=== PATIENT | male | born 1975 | race American Indian/Alaskan Native ===

== ENCOUNTER → 2024-09-25 | Outpatient (CLI) | payer OTHER, BC, SELFPAY ==
--- NOTE | 2024-09-25 10:00 | XR_ITS ---
Examination: JEOVANY, hepatobiliary radioisotope scan Gallbladder ejection fraction study. Date and time of exam: September 25, 2024 1022 hours INDICATIONS: Right upper abdominal pain vomiting bloating epigastric pain months Technique: 6 mCi of 99M Hepatolite administered. Serial imaging then obtained from immediate through 60 minutes. 1.6 mcg selective catheter Kinevac administered for gallbladder ejection fraction study. Findings: Radioisotope activity within the liver is reasonably homogenous. Gallbladder, common bile duct small bowel activity noted Impression: Gallbladder activity Abnormal gallbladder ejection fraction, 12%, normal greater than 35%
== END | disposition home or self-care (01) ==
LOC: SNUC 09:24
PROVIDERS: PCP Nurse Practitioner Family; Referring Provider Nurse Practitioner Family; Visit Provider Nurse Practitioner Family
DX: R93.89 Abnormal findings on diagnostic imaging of other specified body structures (principal)
CPT/HCPCS: 78226; A9537; J2805

== ENCOUNTER 2024-12-20 07:18 | Emergency (ER) | payer OTHER, BC, SELFPAY ==
--- NOTE | 2024-12-20 07:46 | XR_ITS ---
Examination: CT brain head without contrast. 2-D sagittal coronal reconstructions Date and time of exam:December 20, 2024 0913 hrs. Indications: Onset dizziness syncopal episodes today CTDI: vol (mGy):53.4 DLP: (mGycm):1187 Technique: Multiple CT axial sections of the brain have been obtained, 5 mm slice thickness. Contrast has not been administered. 2-D sagittal, coronal reconstructions have been obtained Low dose protocols were performed. One or more of the following dose reduction techniques were used; automated exposure control, adjustment of the mA and/or KV according to patient size, use of iterative reconstruction technique. Findings: No significant ventricular enlargement. Intra-axial or extra-axial hemorrhage density is not seen. No mass effect or midline shift Basal cisterns are not remarkable. Fourth ventricle is midline. Cranial vault intact. Impression: Negative for acute hemorrhage, mass effect or midline shift Advise clinical correlation follow-up accordingly
--- NOTE | 2024-12-20 07:46 | EKG_ITS ---
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
[2024-12-20 07:47] VITALS: BP 152/99; PULSE 91; RESP 20; TEMP 36.8; O2SAT 99; BMI 26.4
--- NOTE | 2024-12-20 07:49 | PD.EDRME ---
Rapid Medical Screening Exam RME Arrival date/time: 12/20/24 07:18 49-year-old male with a history of hypertension, type 2 diabetes presents to the emergency room with a chief complaint of nausea, vomiting, dizziness x 3 days I have greeted and performed a focused initial assessment of this patient. A comprehensive ED assessment and evaluation of the patient, analysis of all test results, and completion of the medical decision making process will be conducted by additional ED providers. Chief Complaint: Nausea/Vomiting/Diarrhea Time Seen by Provider: 12/20/24 07:21 Vital signs: Vital Signs Temperature 98.2 F 12/20/24 07:47 Pulse Rate 91 12/20/24 07:47 Respiratory Rate 20 12/20/24 07:47 Blood Pressure 152/99 H 12/20/24 07:47 Pulse Oximetry (%) 99 12/20/24 07:47 Oxygen Delivery Method Room Air 12/20/24 07:47 Vital signs reviewed by provider: Yes
[2024-12-20] MEDS: MECLIZINE HCL 25 MG TABLET 50 MG PO (07:53)
[2024-12-20] MEDS: ONDANSETRON ODT 4 MG TABRAP PO ×2 (07:54→13:01)
[2024-12-20 08:21] LABS: Basophils % (Auto) 1 % (0-2.5); Eosinophils % (Auto) 0 % (0-10); Hematocrit 45.1 % (41.0-53.0); Hemoglobin 15.8 g/dL (13.5-16.0); Immature Granulocytes % (Auto) 0 % (0-0); Immature Granulocytes Auto 0.02 Thou/mm3 (0.00-0.00); Lymphocytes # (Auto) 1.3 Thou/mm3 (1.0-4.8); Lymphocytes % (Auto) 16 % (10-50); Mean Corpuscular Hemoglobin 29.8 pg (25.0-35.0); Mean Corpuscular Volume 85 fL (80-100); Monocytes # (Auto) 0.3 Thou/mm3 (0.0-0.8); Monocytes % (Auto) 4 % (0-12); Neutrophils # (Auto) 6.6 Thou/mm3 (1.8-7.7); Neutrophils % (Auto) 80 % (37-80); Nucleated Red Blood Cell % 0 /100 WBC (0); Platelet Count 279 Thou/mm3 (140-440); RDW Standard Deviation 37.3 fL (35.1-43.9); Red Blood Count 5.31 Miln/mm3 (4.50-5.90); White Blood Count 8.3 Thou/mm3 (3.8-10.6)
[2024-12-20 08:38] LABS: Alanine Aminotransferase 19 U/L (10-49); Albumin, Serum 4.4 gm/dL (3.5-5.0); Albumin/Globulin Ratio 1.6 (1.2-2.2); Alkaline Phosphatase 67 U/L (46-116); Anion Gap 9 (7-16); Aspartate Amino Transferase 18 U/L (0-34); BUN/Creatinine Ratio 14 Ratio (12-20); Bilirubin,Total 0.4 mg/dL (0.3-1.2); Blood Urea Nitrogen 15 mg/dL (9-23); Calcium 9.4 mg/dL (8.3-10.6); Calcium (Corrected) 9.4 mg/dL (8.5-10.1); Carbon Dioxide 28.4 mMol/L (20.0-31.0); Chloride 100 mMol/L (98-107); Creatinine (Component) 1.1 mg/dL (0.6-1.3); Estimated Creatinine Clearance 88.4 mL/min (>60); Globulin 2.7 gm/dL (2.3-3.5); Glucose 244 mg/dL (74-106); Osmolality,Calculated 282 (275-295); Potassium 3.7 mMol/L (3.4-5.1); Sodium 137 mMol/L (136-145); Total Protein 7.1 gm/dL (5.7-8.2); Troponin I < 0.020 ng/mL (0.0-0.045); eGFR > 60 See Note
[2024-12-20 09:01] LABS: Collection Type, Urine Clean Catch
[2024-12-20 09:31] LABS: Bilirubin,Urine Negative (Negative); Blood,Urine Negative (Negative); Clarity,Urine Clear (Clear/Hazy); Color,Urine Lt-Yellow (Lt Yel-Yel); Glucose, Urine 4+ (Negative); Ketones,Urine 1+ (Negative); Leukocyte Esterase,Urine Negative (Negative); Nitrite,Urine Negative (Negative); Protein,Urine Negative (Neg - Trace); RBC,Urine 2 /hpf (0-3); Specific Gravity,Urine 1.032 (1.001-1.035); Squamous Epithelial Cell,Urine 1 /hpf (0-5); Urobilinogen,Urine Negative mg/dL (0.0-1.0); WBC,Urine 1 /hpf (0-5)
[2024-12-20 10:26] VITALS: BP 155/103; PULSE 91; RESP 20; TEMP 36.8; O2SAT 97
--- NOTE | 2024-12-20 10:30 | XR_ITS ---
EXAMINATION: US gall bladder ORDERING PROVIDER: ALYSSA Johnson HISTORY: ruq pain TECHNIQUE: Multiplanar still ultrasonography of the right upper quadrant was performed using grayscale imaging, supplemented by color and spectral Doppler as needed. COMPARISON: 07/11/2024, right upper quadrant ultrasound. FINDINGS: Liver: Increased echogenicity. No focal lesion identified. Midclavicular craniocaudad length 16.7 cm. Gallbladder: Within normal limits. Biliary system: No biliary ductal dilatation. Common bile duct: N/A cm. Pancreas: Obscured by bowel gas and poor acoustic windows. Vascular: Normal hepatopetal flow in the portal vein. IVC patent. Other: No ascites or mass. IMPRESSION: 1. Diffusely increased liver echotexture, likely reflecting fatty infiltration or hepatocellular disease.
[2024-12-20 11:45] VITALS: BP 179/99; PULSE 81; RESP 17; TEMP 36.9; O2SAT 96
--- NOTE | 2024-12-20 12:18 | PD.EDNV ---
Nausea/Vomit./Diarrhea-RME/HPI General Chief complaint: Nausea/Vomiting/Diarrhea Stated complaint: SEVERE N/V & DIZZINESS X 3 DAYS Time Seen by Provider: 12/20/24 07:21 Arrival date/time: 12/20/24 07:18 This is a 49-year-old male with complaints of abdominal pain, abdominal burning, nausea, vomiting for the past 3 days. Patient has a history of diabetes and high blood pressure. RME / HPI RME / HPI Narrative: 12/20/24 07:18 49-year-old male with a history of hypertension, type 2 diabetes presents to the emergency room with a chief complaint of nausea, vomiting, dizziness x 3 days I have greeted and performed a focused initial assessment of this patient. A comprehensive ED assessment and evaluation of the patient, analysis of all test results, and completion of the medical decision making process will be conducted by additional ED providers. Related Data Home Medications ?Medication ?Instructions ?Recorded ?Confirmed insulin detemir U-100 100 unit/mL 25 unit subcut BID #0 vials 10/23/16 07/01/22 subcutaneous solution (Levemir U-100 Insulin) lisinopril 2.5 mg tablet 1 tab PO DAILY 07/01/22 07/01/22 promethazine 25 mg tablet 1 tab PO DAILY 07/01/22 07/01/22 Previous Rx's ?Medication ?Instructions ?Recorded pantoprazole 20 mg tablet,delayed 20 mg PO QDAY #20 tabs 05/04/22 release (Protonix) sucralfate 1 gram tablet (Carafate) 1 g PO BID #30 tabs 05/04/22 ciprofloxacin HCl 500 mg tablet 500 mg PO BID #14 tabs 02/12/23 (Cipro) dicyclomine 20 mg tablet 20 mg PO BID PRN pain #20 tabs 02/12/23 Allergies Allergy/AdvReac Type Severity Reaction Status Date / Time No Known Allergies Allergy Verified 12/20/24 07:21 Review of Systems Review of Systems Systems Reviewed: All systems reviewed, normal except as documented Past Medical History Past Medical History CARDIAC: Positive Cardiac Disorders and Hypertension; Negative Congestive Heart Failure RESPIRATORY: Negative Chronic Obstructive Pulmonary Disease (COPD) or Asthma GENITOURINARY: Negative Renal Disease ENDOCRINE: Positive Endocrine Disorders and Diabetes Mellitus Type 2; Negative Diabetes Mellitus Type 1 HEMATOLOGIC: Negative Sickle Cell Disease Social History SMOKING STATUS: Former smoker Travel History EBOLA RISK: No ED Exam General General appearance: Present alert and in no apparent distress Head Head exam: Present atraumatic Eye Eye exam: Present normal appearance, PERRL and EOMI ENT ENT exam: Present normal exam, normal oropharynx and mucous membranes moist Neck Neck exam: Present normal inspection, full ROM and trachea midline Chest Chest inspection: Present normal inspection and symmetric chest wall rise Respiratory Respiratory exam: Present normal lung sounds bilaterally Cardiovascular Cardiovascular exam: Present regular rate and normal rhythm Abdominal Exam Abdominal exam: Present soft and other (no pain to light palpation ) Extremities Exam Extremities exam: Present normal inspection and full ROM Back Exam Back exam: Present normal inspection and full ROM Neurological Exam Neurological exam: Present alert, oriented X3 and CN II-XII intact Psychiatric Psychiatric exam: Present normal affect and normal mood Skin Skin exam: Present warm, dry, intact and normal color Course Quality Measures none Orders Category Date Time Status Bedside COVID-19 Antigen Test NOW Care 12/20/24 10:11 Completed Bedside Influenza A&B Antigen Test NOW Care 12/20/24 10:11 Completed EKG (ED ONLY) *Do not use* NOW Care 12/20/24 07:47 Completed Insert IV NOW Care 12/20/24 12:[address] head/brain wo con Stat Exams 12/20/24 07:46 Completed EKG (ED Only) Stat Exams 12/20/24 07:46 Draft US gall bladder Stat Exams 12/20/24 10:30 Completed CBC Stat Lab 12/20/24 07:55 Completed Comprehensive Metabolic Panel Stat Lab 12/20/24 07:55 Completed Lipase Stat Lab 12/20/24 07:55 Completed Troponin I Stat Lab 12/20/24 07:55 Completed Urinalysis Stat Lab 12/20/24 08:30 Completed Urine Culture Stat Lab 12/20/24 08:30 Completed HYDROcodone*/APAP 5/325 [Witter 5/325] Med 12/20/24 15:43 Discontinued 1 tab PO X1 ONE Ketorolac Inj [Toradol Inj] Med 12/20/24 14:10 Discontinued 30 mg IVP X1 ONE Lidocaine 2% Viscous [Xylocaine 2% Viscous] Med 12/20/24 12:27 Discontinued 10 ml PO X1 ONE Meclizine HCl [Antivert] Med 12/20/24 07:46 Discontinued 50 mg PO X1 ONE Metoclopramide [Reglan] Med 12/20/24 15:43 Discontinued 10 mg PO X1 ONE Morphine Inj Med 12/20/24 12:27 Discontinued 4 mg IVP X1 ONE Ondansetron Odt [Zofran Odt] Med 12/20/24 07:46 Discontinued 4 mg PO X1 ONE Ondansetron Odt [Zofran Odt] Med 12/20/24 12:27 Discontinued 4 mg PO X1 ONE Sodium Chloride 0.9% 1000 ml [Ns] 1,000 ml Med 12/20/24 12:27 Discontinued IV 999 mls/hr mg Hyd/Al Hyd/Deepak Susp [Maalox Susp] Med 12/20/24 12:27 Discontinued 30 ml PO X1 ONE Vital Signs Vital signs: Vital Signs Temperature 98.2 F 12/20/24 07:47 Pulse Rate 91 12/20/24 07:47 Respiratory Rate 20 12/20/24 07:47 Blood Pressure 152/99 H 12/20/24 07:47 Pulse Oximetry (%) 99 12/20/24 07:47 Oxygen Delivery Method Room Air 12/20/24 07:47 Procedures -ED EKG Interpretation #1: Date of EK12/20/24 Time of EK:01 Rate: 79 Interpretation: Interpreted by me (sinus rhythm and sinus arrhythmia ) EKG Impression: Normal QRS Additional EKG comment: previously seen in previous ekgs Nausea/Vomiting/Diarrhea MDM Narrative MDM Narrative:: FINDINGS: Liver: Increased echogenicity. No focal lesion identified. Midclavicular craniocaudad length 16.7 cm. Gallbladder: Within normal limits. Biliary system: No biliary ductal dilatation. Common bile duct: N/A cm. Pancreas: Obscured by bowel gas and poor acoustic windows. Vascular: Normal hepatopetal flow in the portal vein. IVC patent. Other: No ascites or mass. IMPRESSION: 1. Diffusely increased liver echotexture, likely reflecting fatty infiltration or hepatocellular disease. Patient given a liter of IV fluids along with morphine, Zofran, Maalox, lidocaine. Patient does feel better. Patient was given another dose of pain medication but this time we used Toradol. Patient's white count shows 8.3, hemoglobin and hematocrit of 15.8 and 45.1. Patient's be MP shows an elevated glucose of 244. But otherwise unremarkable. Patient's liver function and bilirubin unremarkable. Lipase unremarkable. Patient feeling better. I spoke to patient at length about following up with primary provider and being sent back to the specialist for GI problems. Patient feels comfortable going home at this time. I told patient to come back to the emergency room if symptoms change or worsen. I also mentioned to patient that visit also shows that he has sinus arrhythmia on EKG. Pt states this is the first time he was told this. He states he will follow-up with primary provider about this. Patient's is at bedside.. Patient data External records reviewed:: [facility] previous records Clinical information provided by:: patient Social determinants that could affect healthcare access:: none Patient has the following chronic illnesses:: see hpi How is presenting disease/condition affected by chronic disease/condition?: uneffected by Evaluation data The following diagnostics were reviewed and interpreted by me:: lab results and radiology exam(s) Lab and/or radiology exams considered but not ordered:: none Interpretation Summary: see note Medications / Prescriptions Medications / Prescriptions considered but not ordered:: none Medication administrations:: Medication Administration History Discontinued Medications Hydrocodone Bitart/Acetaminophen (Hydrocodone/Apap 5/325 Tablet) 1 tab PO X1 ONE Stop: 12/20/24 15:44 Last Admin: 12/20/24 17:27 Dose: 1 tab Documented By: VANESA Al Hydrox/Mg Hydrox/Simethicone (Mg Hyd/Al Hyd/Deepak (Maalox Reg) Susp 30 Ml Udc) 30 ml PO X1 ONE Stop: 12/20/24 12:28 Last Admin: 12/20/24 13:01 Dose: 30 ml Documented By: GUY Sodium Chloride (Ns) 1,000 mls @ 999 mls/hr IV .Q1H1M ONE Stop: 12/20/24 13:27 Last Infusion: 12/20/24 14:53 Dose: Infused Documented By: Admin: 12/20/24 13:00 Dose: 999 mls/hr Documented By: GUY Ketorolac Tromethamine (Ketorolac Inj 30 Mg/Ml Vial) 30 mg IVP X1 ONE Stop: 12/20/24 14:11 Last Admin: 12/20/24 14:51 Dose: 30 mg Documented By: VANESA Lidocaine HCl (Lidocaine Viscous 2% 15 Ml Udc) 10 ml PO X1 ONE Stop: 12/20/24 12:28 Last Admin: 12/20/24 13:01 Dose: 10 ml Documented By: GUY Meclizine HCl (Meclizine Hcl 25 Mg Tablet) 50 mg PO X1 ONE Stop: 12/20/24 07:47 Last Admin: 12/20/24 07:53 Dose: 50 mg Documented By: TEZ Metoclopramide HCl (Metoclopramide Liqd 10 Mg/10 Ml Udc) 10 mg PO X1 ONE Stop: 12/20/24 15:44 Last Admin: 12/20/24 17:28 Dose: 10 mg Documented By: VANESA Morphine Sulfate (Morphine Sulf Inj 10 Mg/Ml Vial) 4 mg IVP X1 ONE Stop: 12/20/24 12:28 Last Admin: 12/20/24 12:56 Dose: 4 mg Documented By: GUY Ondansetron HCl (Ondansetron Odt 4 Mg Tabrap) 4 mg PO X1 ONE; Protocol Stop: 12/20/24 07:47 Last Admin: 12/20/24 07:54 Dose: 4 mg Documented By: TEZ Ondansetron HCl (Ondansetron Odt 4 Mg Tabrap) 4 mg PO X1 ONE; Protocol Stop: 12/20/24 12:28 Last Admin: 12/20/24 13:01 Dose: 4 mg Documented By: GUY see mar Consultations Consultation(s) initiated? (list below): No Diagnosis Nausea Differential Diagnosis: gastroenteritis, dehydration and other (abdominal pain, appendicitis, cholecystitis ) Most likely diagnosis given after review of the tests above:: abdominal pain, chronic gastritis Admission Indicated Admission indicated?: not indicated Admission Request Was there a request for admission?: No Disposition Plan Disposition Plan: Discharge Discharge Attestation Discharge Attestation: The patient and all family members were given an opportunity to ask questions and understood the discharge instructions. Discharge instructions specifically effects, indications for sooner follow up or return to the emergency department, and the expected course of current diagnosis. Patient condition: Stable Discharge Plan Plan Patient Disposition: HOME (Self Care) Patient condition on transfer: Stable Prescriptions/Referrals Prescriptions/Med Rec: No Action Levemir U-100 Insulin 100 U/ML solution 25 unit Sub-Q BID Qty: 0 pantoprazole [Protonix] 20 mg tablet,delayed release (DR/EC) 20 mg PO QDAY Qty: 20 0RF sucralfate [Carafate] 1 gram tablet 1 g PO BID Qty: 30 1RF promethazine 25 mg tablet 1 tab PO DAILY Patient Comments: TAKE 1 TABLET BY MOUTH EVERY 4 TO 6 HOURS NEEDED FOR NAUSEA OR VOMITING lisinopril 2.5 mg tablet 1 tab PO DAILY Patient Comments: TAKE 1 TABLET BY MOUTH DAILY ciprofloxacin HCl [Cipro] 500 mg tablet 500 mg PO BID Qty: 14 0RF dicyclomine 20 mg tablet 20 mg PO BID PRN (Reason: pain) Qty: 20 0RF Referrals: Giana Scherer PA-C ([facility]) [Primary Care Provider] - In 1 week Problem List Clinical Impression: Abdominal pain, Diabetes mellitus Patient/Caregiver Discharge Instructions Discharge Activity: activity as tolerated Education Materials: Abdominal Pain Additional Instructions: Follow up with primary provider in 1-2 days. Come back to ED if symptoms change or worsen. Print Language: Nicaraguan Stand Alone Forms: Alysha Award Info., Patient Portal Info Letter PA/ALYSSA Supervising Physician PA/ALYSSA Supervising Physician: jenniffer
[2024-12-20] MEDS: MORPHINE SULF INJ 10 MG/ML VIAL 4 MG IVP (12:56)
[2024-12-20] MEDS: SODIUM CHLORIDE 0.9% 1000 ML 1,000 ML 999 ML IV (13:00)
[2024-12-20] MEDS: MG HYD/AL HYD/SIME (Maalox Reg) SUSP 30 ML UDC PO (13:01)
[2024-12-20] MEDS: LIDOCAINE VISCOUS 2% 15 ML UDC 10 ML PO (13:01)
[2024-12-20 14:25] VITALS: BP 150/99; PULSE 83; RESP 20; TEMP 36.9; O2SAT 95
[2024-12-20] MEDS: KETOROLAC INJ 30 MG/ML VIAL IVP (14:51)
[2024-12-20 14:54] LABS: Lipase 29 U/L (12-53)
[2024-12-20 15:35] VITALS: BP 160/97; PULSE 85; RESP 20; TEMP 36.9; O2SAT 97
[2024-12-20 17:16] VITALS: BP 142/86; PULSE 87; RESP 18; O2SAT 96
[2024-12-20] MEDS: HYDROcodone/APAP 5/325 TABLET 1 TAB PO (17:27)
[2024-12-20] MEDS: METOCLOPRAMIDE LIQD 10 MG/10 ML UDC PO (17:28)
== END 2024-12-20 17:33 | disposition home or self-care (01) ==
PROVIDERS: Nurse Practitioner Family; Emergency Provider Emergency Medicine; PCP Nurse Practitioner Family
DX: E11.65 Type 2 diabetes mellitus with hyperglycemia (principal); R42 Dizziness and giddiness; R55 Syncope and collapse; R10.11 Right upper quadrant pain; I49.8 Other specified cardiac arrhythmias; I45.89 Other specified conduction disorders; I10 Essential (primary) hypertension; Z79.4 Long term (current) use of insulin; Z87.891 Personal history of nicotine dependence
CPT/HCPCS: 36415; 70450; 76705; 80053; 80307; 81001; 83690; 84484; 85025; 87086; 87400; 87811; 93005; 96361; 96374; 99284; J1885; J2270; J3490; J7030; Q0162; A9270

== ENCOUNTER → 2025-02-07 | Outpatient (CLI) | payer OTHER, BC, SELFPAY ==
--- NOTE | 2025-02-07 13:00 | XR_ITS ---
Examination: Abdomen sonogram, complete Date and time of exam: February 07, 2025 1254 hours INDICATIONS: Right lower abdominal pain beginning this morning. Technique: Multiple real-time grayscale transabdominal sonographic images of the abdomen have been obtained. Findings: Contracted gallbladder Normal common bile duct 0.2 cm Pancreatic head 4.0 cm Aorta not enlarged Liver 17.9 cm fatty infiltration no focal liver lesions Normal hepatopedal portal venous flow Patent IVC Right kidney 10.0 cm cortex 1.1 cm Left kidney 8.5 cm cortex 1.4 cm Mild renal parenchymal scar formation Spleen 10.5 cm IMPRESSION: Recommend repeating the gallbladder portion of the study with fasting Prominent pancreatic head 4.0 cm, suggest CT scan abdomen pelvis post intravenous contrast with specific attention to the pancreas Mild hepatomegaly fatty liver
== END | disposition home or self-care (01) ==
LOC: CDIM 12:31
PROVIDERS: PCP Nurse Practitioner Family; Referring Provider Nurse Practitioner Family; Visit Provider Nurse Practitioner Family
DX: K76.0 Fatty (change of) liver, not elsewhere classified (principal); K86.89 Other specified diseases of pancreas; K82.9 Disease of gallbladder, unspecified; E11.65 Type 2 diabetes mellitus with hyperglycemia; E11.43 Type 2 diabetes mellitus with diabetic autonomic (poly)neuropathy; K31.84 Gastroparesis
CPT/HCPCS: 76700

== ENCOUNTER → 2025-04-16 | Outpatient (CLI) | payer OTHER, BC, SELFPAY ==
--- NOTE | 2025-04-16 10:30 | XR_ITS ---
Examination: CT abdomen, without intravenous contrast. CT abdomen, with intravenous contrast. Sagittal and coronal 2-D reconstructions. Time of exam:April 16, 2025 1044 hours INDICATIONS: Right upper abdominal pain beginning 2 years ago CTDI: vol (mGy) 17.3 DLP: (mGycm) 663 Technique: Multiple 3.0 mm axial noncontrast images of the abdomen have been obtained. Multiple 3.0 mm axial images post administration 60 cc [id number] intravenous contrast have been obtained. Sagittal and coronal 3-D reconstructions have been obtained. Low dose protocols were performed. One or more of the following dose reduction techniques were used; automated exposure control, adjustment of the mA and/or KV according to patient size, use of iterative reconstruction technique. Findings: Small splenic cyst Fatty infiltration throughout the liver No gallstones No pancreatic or adrenal mass No renal or ureteral calculi, no hydronephrosis Aorta normal size Normal appendix No bowel obstruction No diverticulitis IMPRESSION: No pancreatic mass or peripancreatic edema No renal or ureteral calculi, no hydronephrosis Normal appendix
== END | disposition home or self-care (01) ==
LOC: CCTX 10:18
PROVIDERS: Referring Provider Nurse Practitioner Family; Visit Provider Nurse Practitioner Family
DX: R10.9 Unspecified abdominal pain (principal); E11.65 Type 2 diabetes mellitus with hyperglycemia; K82.9 Disease of gallbladder, unspecified; R11.2 Nausea with vomiting, unspecified
CPT/HCPCS: 74170; A4649; Q9967

== ENCOUNTER 2025-05-07 11:03 | Emergency (ER) | payer OTHER, BC, SELFPAY ==
[2025-05-07 11:05] VITALS: BMI 33.9
[2025-05-07 11:26] VITALS: BP 158/109; PULSE 110; RESP 19; TEMP 36.9; O2SAT 98
--- NOTE | 2025-05-07 11:34 | XR_ITS ---
Examination: CT cervical spine without contrast 2-D sagittal reconstructions 2-D coronal reconstructions 3-D reconstructions. Exam date and time:May 07, 2025 1142 hours INDICATIONS: Throat pain difficulty swallowing beginning this morning CTDI:vol (mGy) 16.5 DLP: (mGycm) 361 Technique: Multiple 2 mm axial sections of the cervical spine have been obtained. The coronal and sagittal reconstructions have been obtained. 3-D reconstructions have been obtained. Low dose protocols were performed. One or more of the following dose reduction techniques were used; automated exposure control, adjustment of the mA and/or KV according to patient size, use of iterative reconstruction technique. Findings: Axial sections demonstrate intact base of the skull. C1 exhibit satisfactory relationship to the odontoid. No acute cervical vertebral body fracture seen. Alignment posterior spinous processes satisfactory. Moderate degenerative disc disease C5-C6 No tonsillar abscess on this noncontrast limited study Normal epiglottis The larynx appears normal Thyroid lobes exhibit symmetry Impression: No acute cervical fracture. No tonsillar abscess noted on this limited noncontrast study If oropharyngeal abscess remains a clinical consideration, recommend repeating the study with intravenous contrast
--- NOTE | 2025-05-07 11:35 | PD.EDRME ---
Rapid Medical Screening Exam RME Arrival date/time: 05/07/25 11:03 50-year-old male with a history of hypertension, type 2 diabetes presents to the emergency room with a chief complaint of neck pain, weakness, body aches, vomiting x 3 days I have greeted and performed a focused initial assessment of this patient. A comprehensive ED assessment and evaluation of the patient, analysis of all test results, and completion of the medical decision making process will be conducted by additional ED providers. Chief Complaint: Nausea/Vomiting/Diarrhea Time Seen by Provider: 05/07/25 11:27 Vital signs: Vital Signs Temperature 98.4 F 05/07/25 11:26 Pulse Rate 110 H 05/07/25 11:26 Respiratory Rate 19 05/07/25 11:26 Blood Pressure 158/109 H 05/07/25 11:26 Pulse Oximetry (%) 98 05/07/25 11:26 Oxygen Delivery Method Room Air 05/07/25 11:26 Vital signs reviewed by provider: Yes
[2025-05-07 12:31] LABS: Collection Type, Urine Clean Catch
[2025-05-07 12:34] LABS: Basophils # (Auto) 0.1 Thou/mm3 (0.0-0.2); Basophils % (Auto) 1 % (0-2.5); Eosinophils # (Auto) 0.0 Thou/mm3 (0.0-0.5); Eosinophils % (Auto) 0 % (0-10); Hematocrit 46.6 % (41.0-53.0); Hemoglobin 16.2 g/dL (13.5-16.0); Immature Granulocytes Auto 0.01 Thou/mm3 (0.00-0.00); Lymphocytes # (Auto) 1.1 Thou/mm3 (1.0-4.8); Lymphocytes % (Auto) 14 % (10-50); Mean Corpuscular HGB Conc 34.8 g/dl (31.0-37.0); Mean Corpuscular Hemoglobin 29.7 pg (25.0-35.0); Mean Corpuscular Volume 86 fL (80-100); Monocytes # (Auto) 0.3 Thou/mm3 (0.0-0.8); Monocytes % (Auto) 4 % (0-12); Neutrophils # (Auto) 6.4 Thou/mm3 (1.8-7.7); Neutrophils % (Auto) 82 % (37-80); Nucleated Red Blood Cell # 0.00 Thou/mm3 (0.00-0.00); Nucleated Red Blood Cell % 0 /100 WBC (0); Platelet Count 221 Thou/mm3 (140-440); RDW Standard Deviation 38.2 fL (35.1-43.9); Red Blood Count 5.45 Miln/mm3 (4.50-5.90); White Blood Count 7.8 Thou/mm3 (3.8-10.6)
[2025-05-07 12:40] LABS: Bilirubin,Urine Negative (Negative); Blood,Urine Negative (Negative); Clarity,Urine Clear (Clear/Hazy); Color,Urine Yellow (Lt Yel-Yel); Glucose, Urine 3+ (Negative); Hyaline Casts,Urine 1 /hpf (0-1); Ketones,Urine Trace (Negative); Leukocyte Esterase,Urine Negative (Negative); Nitrite,Urine Negative (Negative); PH,Urine 7.5 (5.0-7.0); Protein,Urine 1+ (Neg - Trace); RBC,Urine 3 /hpf (0-3); Specific Gravity,Urine 1.028 (1.001-1.035); Squamous Epithelial Cell,Urine 1 /hpf (0-5); Urobilinogen,Urine Negative mg/dL (0.0-1.0); WBC,Urine 2 /hpf (0-5)
[2025-05-07 12:56] LABS: Alanine Aminotransferase 32 U/L (10-49); Albumin, Serum 4.8 gm/dL (3.5-5.0); Albumin/Globulin Ratio 1.7 (1.2-2.2); Alkaline Phosphatase 53 U/L (46-116); Anion Gap 8 (7-16); Aspartate Amino Transferase 55 U/L (0-34); BUN/Creatinine Ratio 8 Ratio (12-20); Bilirubin,Total 0.5 mg/dL (0.3-1.2); Blood Urea Nitrogen 10 mg/dL (9-23); Calcium 10.4 mg/dL (8.3-10.6); Calcium (Corrected) 10.4 mg/dL (8.5-10.1); Carbon Dioxide 28.0 mMol/L (20.0-31.0); Chloride 104 mMol/L (98-107); Creatinine (Component) 1.2 mg/dL (0.6-1.3); Estimated Creatinine Clearance 81.3 mL/min (>60); Globulin 2.9 gm/dL (2.3-3.5); Glucose 150 mg/dL (74-106); Lipase 21 U/L (12-53); Osmolality,Calculated 281 (275-295); Potassium 4.4 mMol/L (3.4-5.1); Sodium 140 mMol/L (136-145); Total Protein 7.7 gm/dL (5.7-8.2); eGFR > 60 See Note
[2025-05-07 13:53] VITALS: BP 155/94; PULSE 97; RESP 18; TEMP 36.6; O2SAT 97
--- NOTE | 2025-05-07 13:57 | EKG_ITS ---
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
--- NOTE | 2025-05-07 13:57 | PD.EDDIZZY ---
ED Dizzyness RME/HPI General Chief Complaint: Nausea/Vomiting/Diarrhea Stated Complaint: VOMITING, HEADACHE Time Seen by Provider: 05/07/25 11:27 Arrival date/time: 05/07/25 11:03 Limitations: no limitations RME / HPI RME / HPI Narrative: 50-year-old male who is here today with chronic abdominal pain. This has been happening since at least 2019. He is followed by GI specialist for this. Denies any fevers or chills. He endorses waves of pain including nausea and vomiting. He has no diarrhea. He states he has not build to find a source of the symptoms. He denies any use of marijuana, alcohol, or any drugs. He states has had numerous CAT scans and ultrasounds in the past. He has no other acute complaints. Related Data Home Medications ?Medication ?Instructions ?Recorded ?Confirmed insulin detemir U-100 100 unit/mL 25 unit subcut BID #0 vials 10/23/16 07/01/22 subcutaneous solution (Levemir U-100 Insulin) lisinopril 2.5 mg tablet 1 tab PO DAILY 07/01/22 07/01/22 promethazine 25 mg tablet 1 tab PO DAILY 07/01/22 07/01/22 Previous Rx's ?Medication ?Instructions ?Recorded pantoprazole 20 mg tablet,delayed 20 mg PO QDAY #20 tabs 05/04/22 release (Protonix) sucralfate 1 gram tablet (Carafate) 1 g PO BID #30 tabs 05/04/22 ciprofloxacin HCl 500 mg tablet 500 mg PO BID #14 tabs 02/12/23 (Cipro) dicyclomine 20 mg tablet 20 mg PO BID PRN pain #20 tabs 02/12/23 Allergies Allergy/AdvReac Type Severity Reaction Status Date / Time No Known Allergies Allergy Verified 05/07/25 11:04 Review of Systems Review of Systems Systems Reviewed: All systems reviewed, normal except as documented ED Exam General Limitations: Present no limitations General appearance: Present alert and other (Patient is somewhat somnolent during the exam although he does answer questions appropriately.) Head Head exam: Present atraumatic Eye Eye exam: Present normal appearance, PERRL and EOMI ENT ENT exam: Present normal exam, normal oropharynx and mucous membranes moist Neck Neck exam: Present normal inspection, full ROM and trachea midline Chest Chest inspection: Present normal inspection and symmetric chest wall rise Respiratory Respiratory exam: Present normal lung sounds bilaterally Cardiovascular Cardiovascular exam: Present regular rate, normal rhythm and normal heart sounds Abdominal Exam Abdominal exam: Present soft and normal bowel sounds Extremities Exam Extremities exam: Present normal inspection and full ROM Back Exam Back exam: Present normal inspection and full ROM Neurological Exam Neurological exam: Present alert and oriented X3 Psychiatric Psychiatric exam: Present normal affect and normal mood Skin Skin exam: Present warm, dry, intact and normal color Course Quality Measures none Orders Category Date Time Status Bedside COVID-19 Antigen Test NOW Care 05/07/25 11:34 Active Bedside Influenza A&B Antigen Test NOW Care 05/07/25 11:34 Completed EKG (ED ONLY) *Do not use* NOW Care 05/07/25 13:[address] cervical spine wo con Stat Exams 05/07/25 11:34 Completed EKG (ED Only) Stat Exams 05/07/25 13:57 Draft CBC Stat Lab 05/07/25 12:09 Completed CMP [Comprehensive Metabolic Panel] Stat Lab 05/07/25 12:09 Completed Drug Screen,Urine Stat Lab 05/07/25 13:56 Ordered Lipase Stat Lab 05/07/25 12:09 Completed UA [Urinalysis] Stat Lab 05/07/25 12:18 Completed Urine Culture Stat Lab 05/07/25 12:18 Received Metoclopramide [Reglan] Med 05/07/25 14:00 Discontinued 10 mg PO X1 ONE Vital Signs Vital signs: Vital Signs Temperature 98.4 F 05/07/25 11:26 Pulse Rate 110 H 05/07/25 11:26 Respiratory Rate 19 05/07/25 11:26 Blood Pressure 158/109 H 05/07/25 11:26 Pulse Oximetry (%) 98 05/07/25 11:26 Oxygen Delivery Method Room Air 05/07/25 11:26 Dizziness MDM Narrative MDM Narrative:: 50-year-old male who is here today with chronic abdominal pain. He also endorses dizziness. This has been happening since at least 2019. He is followed by GI specialist for this. Denies any fevers or chills. He endorses waves of pain including nausea and vomiting. He has no diarrhea. He states he has not build to find a source of the symptoms. He denies any use of marijuana, alcohol, or any drugs. He states has had numerous CAT scans and ultrasounds in the past. He has no other acute complaints. On exam, patient is nontoxic-appearing and in no visible signs of distress. His vital signs are stable. His CBC is unremarkable, metabolic panel reveals mild hyperglycemia at 150, CMP is otherwise unremarkable. Urinalysis is unremarkable. CT of the neck was obtained which also unremarkable. I reviewed his past studies including gallbladder ultrasounds, abdominal ultrasounds, numerous CT of the abdomen pelvis studies. I do believe the patient can be discharged to the ER for further outpatient workup. He is advised to follow-up with his primary doctor and GI doctor. Return precautions were discussed. He is asked to return as needed for any worsening or emergent changes. Patient data External records reviewed:: None Clinical information provided by:: patient Social determinants that could affect healthcare access:: none Patient has the following chronic illnesses:: Diabetes, chronic abdominal pain How is presenting disease/condition affected by chronic disease/condition?: exacerbated by Evaluation data The following diagnostics were reviewed and interpreted by me:: lab results (CBC is unremarkable, metabolic panel shows mild hyperglycemia, otherwise unremarkable. Urinalysis unremarkable.), radiology exam(s) (CT of the neck was unremarkable.) and EKG tracing(s) (EKG reveals normal sinus rhythm at 84 bpm with few PVSs. ) Lab and/or radiology exams considered but not ordered:: n./a Interpretation Summary: Unremarkable workup Medications / Prescriptions Medications or Prescriptions considered but not ordered:: n/a Medication administrations:: Medication Administration History Discontinued Medications Metoclopramide HCl (Metoclopramide 5 Mg Tablet) 10 mg PO X1 ONE Stop: 05/07/25 14:01 Last Admin: 05/07/25 14:12 Dose: 10 mg Documented By: KAVYA See above Consultations Consultation(s) initiated? (list below): No Diagnosis Dizziness Differential Diagnosis: orthostatic hypotension Most likely diagnosis given after review of the tests above:: Chronic abdominal pain, chronic dizziness Admission Indicated Admission indicated?: not indicated Admission Request Was there a request for admission?: No Disposition Plan Disposition Plan: Discharge Discharge Attestation Discharge Attestation: The patient and all family members were given an opportunity to ask questions and understood the discharge instructions. Discharge instructions specifically effects, indications for sooner follow up or return to the emergency department, and the expected course of current diagnosis. Patient condition: Stable Discharge Plan Plan Patient Disposition: HOME (Self Care) Patient condition on transfer: Stable Prescriptions/Referrals Prescriptions/Med Rec: No Action Levemir U-100 Insulin 100 U/ML solution 25 unit Sub-Q BID Qty: 0 pantoprazole [Protonix] 20 mg tablet,delayed release (DR/EC) 20 mg PO QDAY Qty: 20 0RF sucralfate [Carafate] 1 gram tablet 1 g PO BID Qty: 30 1RF promethazine 25 mg tablet 1 tab PO DAILY Patient Comments: TAKE 1 TABLET BY MOUTH EVERY 4 TO 6 HOURS NEEDED FOR NAUSEA OR VOMITING lisinopril 2.5 mg tablet 1 tab PO DAILY Patient Comments: TAKE 1 TABLET BY MOUTH DAILY ciprofloxacin HCl [Cipro] 500 mg tablet 500 mg PO BID Qty: 14 0RF dicyclomine 20 mg tablet 20 mg PO BID PRN (Reason: pain) Qty: 20 0RF Referrals: Giana Scherer PA-C ([facility]) [Primary Care Provider] - In 1 week Problem List Clinical Impression: Chronic abdominal pain Patient/Caregiver Discharge Instructions Education Materials: Abdominal Pain Additional Instructions: - Continue current therapies. - Please contact your GI specialist to schedule close follow-up appointment. - Please return here as needed for any worsening or emergent changes. Print Language: Luxembourgish Stand Alone Forms: [facility] Award Info., Patient Portal Info Letter
[2025-05-07] MEDS: METOCLOPRAMIDE 5 MG TABLET 10 MG PO (14:12)
[2025-05-07 15:03] LABS: Amphetamine/Methamp Scrn,U Negative (Negative); Barbiturate Screen,Urine Negative (Negative); Benzodiazepines Screen,Urine Negative (Negative); Benzoylecgonine Screen, Ur Negative (Negative); Fentanyl Screen,Urine Negative (Negative); Opiate Screen,Urine Negative (Negative); THC Screen,Urine Negative (Negative)
== END 2025-05-07 15:27 | disposition home or self-care (01) ==
PROVIDERS: Nurse Practitioner Family; Physician Assistant Medical; Emergency Provider Emergency Medicine; PCP Nurse Practitioner Family
DX: R10.9 Unspecified abdominal pain (principal); G89.29 Other chronic pain; R07.0 Pain in throat; R13.10 Dysphagia, unspecified; R42 Dizziness and giddiness
CPT/HCPCS: 36415; 72125; 80053; 80307; 81001; 83690; 85025; 87086; 87400; 87811; 93005; 99283; A9270

== ENCOUNTER → 2025-05-31 | Outpatient (CLI) | payer OTHER, BC, SELFPAY ==
--- NOTE | 2025-05-31 09:03 | XR_ITS ---
EXAMINATION: Cervical spine, 5 views Technique: Cervical spine AP, AP odontoid, lateral, bilateral obliques, 5 views Exam date and time: May 31, 2025 0920 hours INDICATIONS: Neck pain radiating down both arms with numbness in the arms beginning one year ago. FINDINGS: Adequate alignment cervical vertebral bodies. No cervical fracture. Intact odontoid. Moderate to advanced degenerative disc disease C5-C6 with mild to moderate bilateral neural foraminal stenosis at this level IMPRESSION: Moderate to advanced degenerative disc disease C5-C6 with mild to moderate bilateral no foraminal stenosis at this level
== END | disposition home or self-care (01) ==
LOC: CDIM 08:49
PROVIDERS: PCP Nurse Practitioner Family; Referring Provider Nurse Practitioner Family; Visit Provider Nurse Practitioner Family
DX: M50.322 Other cervical disc degeneration at C5-C6 level (principal)
CPT/HCPCS: 72050

== ENCOUNTER 2025-06-12 00:47 | Emergency (ER) | payer OTHER, BC, SELFPAY ==
[2025-06-12 00:50] VITALS: BMI 27.8
--- NOTE | 2025-06-12 00:54 | EKG_ITS ---
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
[2025-06-12 01:00] VITALS: BP 144/89; PULSE 107; RESP 22; TEMP 36.5; O2SAT 95
--- NOTE | 2025-06-12 01:26 | XR_ITS ---
Examination: PA chest single view TECHNIQUE: Upright PA chest single view Date and time: June 12, 2025 0125 hours INDICATIONS: Shortness of breath chest pain today. FINDINGS: Bilateral perihilar pneumonia No significant cardiac enlargement Reduced inspiratory effort IMPRESSION: Significant bilateral perihilar pneumonia
--- NOTE | 2025-06-12 01:36 | EDNOTE_ITS ---
ED SOB =RME/HPI General Chief Complaint: General Adult/Misc Complain Stated Complaint: HEADACHE DIFFICULTY BREATHING Time Seen by Provider: 06/12/25 01:26 Arrival date/time: 06/12/25 00:47 50M with history of HTN, DM, and previous cocaine use presents to ED with 1 day of MANN and SOB, which SOB getting better. Drank 3-4 beers 2 days ago. Patient denies CP and URI symptoms, as well as fevers/chills. Limitations: no limitations Related Data Home Medications ?Medication ?Instructions ?Recorded ?Confirmed insulin detemir U-100 100 unit/mL 25 unit subcut BID # 0 vials 10/23/16 07/01/22 subcutaneous solution (Levemir U-100 Insulin) lisinopril 2.5 mg tablet 1 tab PO DAILY 07/01/2206/12 promethazine 25 mg tablet 1 tab PO DAILY 07/01/2206/12 Previous Rx's ?Medication ?Instructions ?Recorded pantoprazole 20 mg tablet,delayed 20 mg PO QDAY #20 ta bs 05/04/22 release (Protonix) sucralfate 1 gram tablet (Carafate) 1 g PO BID #30 tab s 05/04/22 ciprofloxacin HCl 500 mg tablet 500 mg PO BID #14 tabs 02/12/23 (Cipro) dicyclomine 20 mg tablet 20 mg PO BID PRN pain #20 ta bs 02/12/23 Allergies Allergy/AdvReac Type Severity Reaction Status Date / Time No Known Allergies Allergy Verified 06/12/25 00:54 Review of Systems Review of Systems Systems Reviewed: All systems reviewed, normal except as documented Constitutional Constitutional: Reports system reviewed and no additional complaints, except as documented, Reports as per HPI, Denies fever(s) and Reports headache(s) ENT Ears, Nose, Mouth, and Throat: Denies disequilibrium and Reports headache(s) Cardiovascular Cardiovascular: Reports system reviewed and no additional complaints, except as documented, Denies chest pain and Reports dyspnea Respiratory Respiratory: Reports system reviewed and no additional complaints, except as documented, Reports as per HPI, Denies cough and Reports dyspnea Gastrointestinal Gastrointestinal: Reports system reviewed and no additional complaints, except as documented, Denies abdominal pain, Denies nausea and Denies vomiting Neurologic Neurologic: Reports system reviewed and no additional complaints, except as documented, Denies confusion, Denies disequilibrium and Reports headache(s) Psychiatric Psychiatric: Denies confusion Past Medical History Past Medical History NEUROLOGIC: Negative Neurological Disorders, Seizures or Migraine CARDIAC: Positive Cardiac Disorders, Hypercholesterolemia and Hypertension; Negative Congestive Heart Failure RESPIRATORY: Negative Chronic Obstructive Pulmonary Disease (COPD), Asthma or Sleep Apnea GASTROINTESTINAL: Negative Gastrointestinal Disorders GENITOURINARY: Negative Renal Disease MUSCULOSKELETAL: Positive Musculoskeletal Disorders ENDOCRINE: Positive Endocrine Disorders and Diabetes Mellitus Type 2; Negative Diabetes Mellitus Type 1 HEMATOLOGIC: Negative Sickle Cell Disease OTHER HISTORY: Negative Blood Transfusions, Anesthesia Reactions or Cancer Surgical History SURGICAL: Negative Cardiac Surgery, Endocrine Surgery, Ear Surgery, Abdominal Surgery, Nephrectomy, Joint Replacement or Neurologic Surgery Social History SMOKING STATUS: Never smoker ED Exam General Limitations: Present no limitations General appearance: Present alert and in no apparent distress Head Head exam: Present atraumatic Eye Eye exam: Present normal appearance, PERRL and EOMI ENT ENT exam: Present normal exam, normal oropharynx and mucous membranes moist Neck Neck exam: Present normal inspection, full ROM and trachea midline Chest Chest inspection: Present normal inspection and symmetric chest wall rise Respiratory Respiratory exam: Present normal lung sounds bilaterally Cardiovascular Cardiovascular exam: Present regular rate, normal rhythm and normal heart sounds Abdominal Exam Abdominal exam: Present soft and normal bowel sounds Extremities Exam Extremities exam: Present normal inspection and full ROM Back Exam Back exam: Present normal inspection and full ROM Neurological Exam Neurological exam: Present alert, oriented X3 and CN II-XII intact Psychiatric Psychiatric exam: Present normal affect and normal mood Skin Skin exam: Present warm, dry, intact and normal color Course Quality Measures none Orders Category Date Time Status EKG (ED ONLY) *Do not use* NOW Care 06/12/25 00:54 Completed EKG (ED Only) Stat Exams 06/12/25 00:54 Draft XR chest 1V portable Stat Exams 06/12/25 01:26 Completed BNP [B-Type Natriuretic Peptide] Stat Lab 06/12/25 01:30 Completed CBC Stat Lab 06/12/25 01:30 Completed Comprehensive Metabolic Panel Stat Lab 06/12/25 01:30 Completed D-Dimer Stat Lab 06/12/25 01:30 Completed Troponin I Stat Lab 06/12/25 01:30 Completed Metoclopramide [Reglan] Med 06/12/25 01:26 Discontinued 10 mg PO X1 ONE Vital Signs Vital signs: Vital Signs Temperature 97.7 F 06/12/25 01:00 Pulse Rate 107 H 06/12/25 01:00 Respiratory Rate 22 H 06/12/25 01:00 Blood Pressure 144/89 H 06/12/25 01:00 Pulse Oximetry (%) 95 06/12/25 01:00 Oxygen Delivery Method Room Air 06/12/25 01:00 O2 at 95% on RA and WNLs Shortness of Breath / Dyspnea MDM Narrative MDM Narrative:: 50M with history of HTN, DM, and previous cocaine use presents to ED with 1 day of MANN and SOB, which SOB getting better. Drank 3-4 beers 2 days ago. Patient denies CP and URI symptoms, as well as fevers/chills. Phsical exam reveals normal pupil response and EOM. CN II-XII grossly intact. Speech normal. Gait normal. Clear lungs. Normal WOB. RRR. Patient is afebrile, calm, and alert. EKG is NSR with non-specific ST-T wave changes, as seen on previous EKGs. CXR significant PNA. Trop and D-dimer normal. BNP mildly elevated. Patient eloped prior to CT. Patient data External records reviewed:: [facility] previous records Clinical information provided by:: patient Social determinants that could affect healthcare access:: substance use Patient has the following chronic illnesses:: HTN, DM, and previous cocaine use How is presenting disease/condition affected by chronic disease/condition?: exacerbated by Evaluation data The following diagnostics were reviewed and interpreted by me:: lab results, radiology exam(s) and EKG tracing(s) Lab and/or radiology exams considered but not ordered:: ordered Interpretation Summary: above Medications / Prescriptions Medications or Prescriptions considered but not ordered:: ordered Medication administrations:: Medication Administration History Discontinued Medications Metoclopramide HCl (Metoclopramide 5 Mg Tablet) 10 mg PO X1 ONE Stop: 06/12/25 01:27 Last Admin: 06/12/25 01:47 Dose: 10 mg Documented By: DT above Consultations Consultation(s) initiated? (list below): No Diagnosis Shortness of Breath Differential Diagnosis: acute exacerbation of chronic obstructive airways disease, congestive heart failure, community acquired pneumonia, asthma with exacerbation, pulmonary embolism and other (TB, migraine, anxiety, headache and dyspnea) Most likely diagnosis given after review of the tests above:: headache and dyspnea Admission Indicated Admission indicated?: not indicated Admission Request Was there a request for admission?: No Disposition Plan Disposition Plan: other (specify) (eloped) Discharge Plan Plan Patient Disposition: Elopement Prescriptions/Referrals Prescriptions/Med Rec: No Action Levemir U-100 Insulin 100 U/ML solution 25 unit Sub-Q BID Qty: 0 pantoprazole [Protonix] 20 mg tablet,delayed release (DR/EC) 20 mg PO QDAY Qty: 20 0RF sucralfate [Carafate] 1 gram tablet 1 g PO BID Qty: 30 1RF promethazine 25 mg tablet 1 tab PO DAILY Patient Comments: TAKE 1 TABLET BY MOUTH EVERY 4 TO 6 HOURS NEEDED FOR NAUSEA OR VOMITING lisinopril 2.5 mg tablet 1 tab PO DAILY Patient Comments: TAKE 1 TABLET BY MOUTH DAILY ciprofloxacin HCl [Cipro] 500 mg tablet 500 mg PO BID Qty: 14 0RF dicyclomine 20 mg tablet 20 mg PO BID PRN (Reason: pain) Qty: 20 0RF Referrals: Giana Scherer PA-C ([facility]) [Primary Care Provider] - In 1 week Problem List Clinical Impression: Dyspnea, Headache Patient/Caregiver Discharge Instructions Print Language: [place] [employer]ER[employer]X [employer]M PREPARER Supervising Physician FEDER[employer]/TA[employer]M PREPARER Supervising Physician: Dr. Coello
[2025-06-12 01:46] LABS: Basophils # (Auto) 0.0 Thou/mm3 (0.0-0.2); Basophils % (Auto) 1 % (0-2.5); Eosinophils # (Auto) 0.1 Thou/mm3 (0.0-0.5); Eosinophils % (Auto) 1 % (0-10); Hematocrit 39.5 % (41.0-53.0); Hemoglobin 13.6 g/dL (13.5-16.0); Immature Granulocytes Auto 0.02 Thou/mm3 (0.00-0.00); Lymphocytes # (Auto) 1.7 Thou/mm3 (1.0-4.8); Lymphocytes % (Auto) 19 % (10-50); Mean Corpuscular HGB Conc 34.4 g/dl (31.0-37.0); Mean Corpuscular Hemoglobin 29.8 pg (25.0-35.0); Mean Corpuscular Volume 86 fL (80-100); Monocytes # (Auto) 0.5 Thou/mm3 (0.0-0.8); Monocytes % (Auto) 5 % (0-12); Neutrophils # (Auto) 6.5 Thou/mm3 (1.8-7.7); Neutrophils % (Auto) 74 % (37-80); Nucleated Red Blood Cell # 0.00 Thou/mm3 (0.00-0.00); Nucleated Red Blood Cell % 0 /100 WBC (0); Platelet Count 285 Thou/mm3 (140-440); RDW Standard Deviation 38.4 fL (35.1-43.9); Red Blood Count 4.57 Miln/mm3 (4.50-5.90); White Blood Count 8.8 Thou/mm3 (3.8-10.6)
[2025-06-12] MEDS: METOCLOPRAMIDE 5 MG TABLET 10 MG PO (01:47)
--- NOTE | 2025-06-12 02:06 | PRELIM_ITS ---
Radiograph of the chest (single view). June 12, 2025 0123 hours Clinical History: Shortness of breath. Technique: Single PA view of the chest is obtained Comparison: None Findings: Cardiac silhouette is of normal size. There are patchy perihilar and bibasilar opacities. There is no pleural effusion or pneumothorax. Visualized osseous structures are intact. Impression: Patchy perihilar and bibasilar opacities may represent edema and/or atelectasis/pneumonia. Recommend follow-up chest radiograph to document resolution. Report Electronically Signed By: Bart Ponce 06/12/2025 2:05:31 AM [EST]
[2025-06-12 02:10] LABS: Alanine Aminotransferase 16 U/L (10-49); Albumin, Serum 4.0 gm/dL (3.5-5.0); Albumin/Globulin Ratio 1.8 (1.2-2.2); Alkaline Phosphatase 54 U/L (46-116); Anion Gap 9 (7-16); Aspartate Amino Transferase 20 U/L (0-34); BUN/Creatinine Ratio 11 Ratio (12-20); Bilirubin,Total 0.3 mg/dL (0.3-1.2); Blood Urea Nitrogen 10 mg/dL (9-23); Calcium 9.2 mg/dL (8.3-10.6); Calcium (Corrected) 9.2 mg/dL (8.5-10.1); Carbon Dioxide 27.0 mMol/L (20.0-31.0); Chloride 106 mMol/L (98-107); Creatinine (Component) 0.9 mg/dL (0.6-1.3); Estimated Creatinine Clearance 115.7 mL/min (>60); Globulin 2.2 gm/dL (2.3-3.5); Glucose 88 mg/dL (74-106); Osmolality,Calculated 281 (275-295); Potassium 3.6 mMol/L (3.4-5.1); Sodium 142 mMol/L (136-145); Total Protein 6.2 gm/dL (5.7-8.2); Troponin I < 0.020 ng/mL (0.0-0.045); eGFR > 60 See Note
[2025-06-12 02:26] LABS: D-Dimer < 250 ng/mL (<600)
[2025-06-12 03:19] LABS: B-Type Natriuretic Peptide 268 pg/mL (0-100)
--- NOTE | 2025-06-12 06:00 | PC.NURSE ---
ATTEMPTED TO CALL PT BACK FOR CT NO ANSWER IN LOBBY X2
--- NOTE | 2025-06-12 06:12 | PC.NURSE ---
NO ANSWER IN LOBBY AT THIS TIME X2
== END 2025-06-12 06:21 | disposition left against medical advice (07) ==
PROVIDERS: Physician Assistant; Emergency Provider Emergency Medicine; PCP Nurse Practitioner Family
DX: J18.9 Pneumonia, unspecified organism (principal); R51.9 Headache, unspecified; R00.0 Tachycardia, unspecified; I45.89 Other specified conduction disorders; I10 Essential (primary) hypertension; Z53.29 Procedure and treatment not carried out because of patient's decision for other reasons
CPT/HCPCS: 36415; 71045; 80053; 83880; 84484; 85025; 85379; 93005; 96361; 96365; 96375; 99284; A9270

== ENCOUNTER 2025-08-11 09:12 | Emergency (ER) | payer BC, SELFPAY ==
[2025-08-11 09:13] VITALS: BMI 29.2
[2025-08-11 09:38] VITALS: BP 109/69; PULSE 119; RESP 18; TEMP 37.1; O2SAT 95
--- NOTE | 2025-08-11 09:45 | PD.EDRME ---
Rapid Medical Screening Exam E Arrival date/time: 08/11/25 09:12 This is a 50-year-old male that comes into the emergency room with complaints of nausea, vomiting, abdominal pain for the last 2 days. Patient denies diarrhea. Patient states that he has history of high blood pressure and diabetes. I have greeted and performed a focused initial assessment of this patient. Initial appropriate labs ordered at this time. A comprehensive ED assessment and evaluation of the patient and analysis of all test and completion of medical decision making process will be conducted by additional ED provider. Chief Complaint: Abdominal Pain Time Seen by Provider: 08/11/25 09:33 Vital signs: Vital Signs Temperature 98.8 F 08/11/25 09:38 Pulse Rate 119 H 08/11/25 09:38 Respiratory Rate 18 08/11/25 09:38 Blood Pressure 109/69 08/11/25 09:38 Pulse Oximetry (%) 95 08/11/25 09:38 Oxygen Delivery Method Room Air 08/11/25 09:38 Exam: Alert and oriented. Diffuse abdominal pain, GCS 15 Clinical Impression: Abdominal pain
[2025-08-11] MEDS: ONDANSETRON ODT 4 MG TABRAP PO (10:08)
[2025-08-11 10:20] LABS: Basophils # (Auto) 0.1 Thou/mm3 (0.0-0.2); Basophils % (Auto) 1 % (0-2.5); Eosinophils # (Auto) 0.0 Thou/mm3 (0.0-0.5); Eosinophils % (Auto) 0 % (0-10); Hematocrit 53.9 % (41.0-53.0); Hemoglobin 18.4 g/dL (13.5-16.0); Immature Granulocytes Auto 0.03 Thou/mm3 (0.00-0.00); Lymphocytes # (Auto) 1.2 Thou/mm3 (1.0-4.8); Lymphocytes % (Auto) 15 % (10-50); Mean Corpuscular HGB Conc 34.1 g/dl (31.0-37.0); Mean Corpuscular Hemoglobin 28.4 pg (25.0-35.0); Mean Corpuscular Volume 83 fL (80-100); Monocytes # (Auto) 0.6 Thou/mm3 (0.0-0.8); Monocytes % (Auto) 6 % (0-12); Neutrophils # (Auto) 6.6 Thou/mm3 (1.8-7.7); Neutrophils % (Auto) 78 % (37-80); Nucleated Red Blood Cell # 0.00 Thou/mm3 (0.00-0.00); Nucleated Red Blood Cell % 0 /100 WBC (0); Platelet Count 349 Thou/mm3 (140-440); RDW Standard Deviation 37.2 fL (35.1-43.9); Red Blood Count 6.47 Miln/mm3 (4.50-5.90); White Blood Count 8.5 Thou/mm3 (3.8-10.6)
[2025-08-11 10:42] LABS: Alanine Aminotransferase 17 U/L (10-49); Albumin, Serum 5.9 gm/dL (3.5-5.0); Albumin/Globulin Ratio 2.0 (1.2-2.2); Alkaline Phosphatase 83 U/L (46-116); Anion Gap 15 (7-16); Aspartate Amino Transferase 22 U/L (0-34); BUN/Creatinine Ratio 6 Ratio (12-20); Bilirubin,Total 0.9 mg/dL (0.3-1.2); Blood Urea Nitrogen 16 mg/dL (9-23); Calcium 11.4 mg/dL (8.3-10.6); Calcium (Corrected) 11.4 mg/dL (8.5-10.1); Carbon Dioxide 27.2 mMol/L (20.0-31.0); Chloride 90 mMol/L (98-107); Creatinine (Component) 2.6 mg/dL (0.6-1.3); Estimated Creatinine Clearance 40.9 mL/min (>60); Globulin 2.9 gm/dL (2.3-3.5); Glucose 380 mg/dL (74-106); Lipase 39 U/L (12-53); Osmolality,Calculated 281 (275-295); Potassium 4.2 mMol/L (3.4-5.1); Sodium 132 mMol/L (136-145); Total Protein 8.8 gm/dL (5.7-8.2); eGFR 29 See Note
[2025-08-11 10:44] LABS: Collection Type, Urine Voided
[2025-08-11 11:06] LABS: Bilirubin,Urine Negative (Negative); Blood,Urine Negative (Negative); Color,Urine Yellow (Lt Yel-Yel); Culture Indicated,Urine Not Indicated; Glucose, Urine 4+ (Negative); Granular Casts,Urine < 1 /hpf (0-1); Ketones,Urine Trace (Negative); Leukocyte Esterase,Urine Negative (Negative); Nitrite,Urine Negative (Negative); PH,Urine 5.5 (5.0-7.0); Protein,Urine Trace (Neg - Trace); RBC,Urine 1 /hpf (0-3); Specific Gravity,Urine 1.030 (1.001-1.035); Squamous Epithelial Cell,Urine 26 /hpf (0-5); Urobilinogen,Urine Negative mg/dL (0.0-1.0); WBC,Urine 5 /hpf (0-5)
[2025-08-11 11:13] LABS: Clarity,Urine Hazy (Clear/Hazy)
[2025-08-11 11:38] LABS: Amphetamine/Methamp Scrn,U Negative (Negative); Barbiturate Screen,Urine Negative (Negative); Benzodiazepines Screen,Urine Negative (Negative); Benzoylecgonine Screen, Ur Positive (Negative); Fentanyl Screen,Urine Negative (Negative); Opiate Screen,Urine Negative (Negative); THC Screen,Urine Negative (Negative)
--- NOTE | 2025-08-11 12:22 | EDNOTE_ITS ---
<Statement entered by Nicky Santillan MD - 08/12/25 14:20> As co-signing physician, I was present and available for consult prn. I concur with the plan and care as documented by the midlevel provider. Nausea/Vomit./Diarrhea-RME/HPI General Chief complaint: Abdominal Pain Stated complaint: EPIGASTRIC PAIN X1 WEEK WITH N/V Time Seen by Provider: 08/11/25 09:33 Arrival date/time: 37-sbre-oke-year-old male patient with significant history of hypertension diabetes mellitus, was brought in by family for evaluation regarding nausea and vomiting has been ongoing for the last 2 days, severity moderate, associated with epigastric pain. Patient cannot take anything down due to vomiting. Denies any fever diarrhea constipation or other complaints. No medication was taken prior to ER visit. RME / HPI RME / HPI Narrative: 08/11/25 09:12 This is a 50-year-old male that comes into the emergency room with complaints of nausea, vomiting, abdominal pain for the last 2 days. Patient denies diarrhea. Patient states that he has history of high blood pressure and diabetes. I have greeted and performed a focused initial assessment of this patient. Initial appropriate labs ordered at this time. A comprehensive ED assessment and evaluation of the patient and analysis of all test and completion of medical decision making process will be conducted by additional ED provider. Exam: Alert and oriented. Diffuse abdominal pain, GCS 15 Impression: Abdominal pain Related Data Home Medications ?Medication ?Instructions ?Recorded ?Confirmed insulin detemir U-100 100 unit/mL 25 unit subcut BID # 0 vials 10/23/16 07/01/22 subcutaneous solution (Levemir U-100 Insulin) lisinopril 2.5 mg tablet 1 tab PO DAILY 07/01/2206/12 promethazine 25 mg tablet 1 tab PO DAILY 07/01/2206/12 Previous Rx's ?Medication ?Instructions ?Recorded pantoprazole 20 mg tablet,delayed 20 mg PO QDAY #20 ta bs 05/04/22 release (Protonix) sucralfate 1 gram tablet (Carafate) 1 g PO BID #30 tab s 05/04/22 ciprofloxacin HCl 500 mg tablet 500 mg PO BID #14 tabs 02/12/23 (Cipro) dicyclomine 20 mg tablet 20 mg PO BID PRN pain #20 ta bs 02/12/23 famotidine 40 mg tablet (Pepcid) 40 mg PO BID #20 tabs 08/11/25 metoclopramide HCl 10 mg tablet 10 mg PO Q6H PRN nause a and 08/11/25 (Reglan) vomiting #30 tabs Allergies Allergy/AdvReac Type Severity Reaction Status Date / Time No Known Allergies Allergy Verified 08/11/25 09:15 Review of Systems Review of Systems Narrative Review of Systems: Review of system reviewed and within normal limits except mentioned in HPI ED Exam Narrative Physical exam: VITAL SIGNS: Reviewed. GENERAL APPEARANCE: Alert and interactive, follows commands, no acute distress, HEAD AND FACE: Non-traumatic. ENT: PERRL, pink conjunctivitis, eyelid no trauma, Mucous membrane moist. NECK: Supple, nontender, no nuchal rigidity. CHEST: No tenderness, no crepitus, no paradoxical movement, no retractions. LUNGS: Clear, well ventilated, symmetric, no rales, no wheezing, no ronchi, no stridor, good breath sounds bilaterally. HEART: Regular rate, regular rhythm, no murmur, no gallops. ABDOMEN: Soft, positive bowel sounds, nondistended, no guarding, epigastric tenderness,, no rebound, no masses, RECTAL: Deferred. GENITAL: Deferred. NEUROLOGICAL: Gross motor function intact sensory function intact, Appropriate for age. MUSCULOSKELETAL: low back nontender, full range of motion. EXTREMITIES: Nontender, full range of motion. SKIN: Color pink, dry, no rash, no lacerations, no abrasions, no contusions. LYMPHATICS: Deferred. Patient Course Quality Measures none Orders Category Date Time Status BMP [Basic Metabolic Panel] Stat Lab 08/11/25 14:43 Completed CBC Stat Lab 08/11/25 09:55 Completed Comprehensive Metabolic Panel Stat Lab 08/11/25 09:55 Completed Drug Screen,Urine Stat Lab 08/11/25 10:36 Completed Lipase Stat Lab 08/11/25 09:55 Completed Urinalysis, C/S if Indicated Stat Lab 08/11/25 10:36 Completed Famotidine Inj [Pepcid Inj] Med 08/11/25 12:29 Discontinued 20 mg IVP X1 ONE Insulin Regular Med 08/11/25 12:33 Discontinued 10 unit IV X1 ONE Metoclopramide Inj [Reglan Inj] Med 08/11/25 12:29 Discontinued 10 mg IVP X1 ONE Morphine* Inj Med 08/11/25 14:46 Discontinued 4 mg IVP X1 ONE Ondansetron Odt [Zofran Odt] Med 08/11/25 09:43 Discontinued 4 mg PO X1 ONE POTASSIUM CHL 10 mEq IVPB [Kcl Ivpb] Med 08/11/25 12:34 Discontinued 10 meq in 100 ml IV X1 Ringers Lactated 1000 ml [Lactated Ringers] 1,000 ml Med 08/11/25 12:30 Discontinued IV 999 mls/hr Ringers Lactated 1000 ml [Lactated Ringers] 1,000 ml Med 08/11/25 12:30 Discontinued IV 999 mls/hr Ringers Lactated 1000 ml [Lactated Ringers] 1,000 ml Med 08/11/25 15:33 Active IV 999 mls/hr Ringers Lactated 500 ml [Lactated Ringers] 500 ml Med 08/11/25 15:40 Discontinued IV 999 mls/hr Vital Signs Vital signs: Vital Signs Temperature 98.8 F 08/11/25 09:38 Pulse Rate 119 H 08/11/25 09:38 Respiratory Rate 18 08/11/25 09:38 Blood Pressure 109/69 08/11/25 09:38 Pulse Oximetry (%) 95 08/11/25 09:38 Oxygen Delivery Method Room Air 08/11/25 09:38 Nausea/Vomiting/Diarrhea MDM Narrative MDM Narrative:: 50-year-old male patient with significant history of hypertension diabetes mellitus, was brought in by family for evaluation regarding nausea and vomiting has been ongoing for the last 2 days, severity moderate, associated with epigastric pain. Patient cannot take anything down due to vomiting. Denies any fever diarrhea constipation or other complaints. No medication was taken prior to ER visit. Patient laboratory workup is significant for sodium 133, chloride of 92, initial creatinine was noted to be 2.6, after 2 L of fluid it went down to 2.0. I added 1 L of IV LR. Patient verbalized significant improvement of symptoms no more vomiting noted patient was advised to stop abusing cocaine which could be the triggers of his diabetic ketoacidosis. Patient agrees with the plan. Stable for discharge plan. Patient data External records reviewed:: None Clinical information provided by:: patient Social determinants that could affect healthcare access:: none Patient has the following chronic illnesses:: None How is presenting disease/condition affected by chronic disease/condition?: no chronic disease Evaluation data The following diagnostics were reviewed and interpreted by me:: lab results Lab and/or radiology exams considered but not ordered:: None Interpretation Summary: see MDM Medications / Prescriptions Medications / Prescriptions considered but not ordered:: none Medication administrations:: Medication Administration History Lactated Ringer's (Lactated Ringers) 1,000 mls @ 999 mls/hr IV .Q1H1M ONE Stop: 08/11/25 16:33 Discontinued Medications Famotidine (Famotidine Inj 10 Mg/Ml Vial 2 Ml) 20 mg IVP X1 ONE Stop: 08/11/25 12:30 Last Admin: 08/11/25 12:43 Dose: 20 mg Documented By: CS Lactated Ringer's (Lactated Ringers) 1,000 mls @ 999 mls/hr IV .Q1H1M ONE Stop: 08/11/25 13:30 Last Infusion: 08/11/25 14:29 Dose: Infused Documented By: Admin: 08/11/25 12:44 Dose: 999 mls/hr Documented By: CS Lactated Ringer's (Lactated Ringers) 1,000 mls @ 999 mls/hr IV .Q1H1M ONE Stop: 08/11/25 13:30 Last Admin: 08/11/25 13:38 Dose: 999 mls/hr Documented By: MAYE Potassium Chloride (Kcl Ivpb) 10 meq in 100 mls @ 100 mls/hr IV X1 ONE Stop: 08/11/25 13:33 Last Admin: 08/11/25 12:33 Dose: Not Given Documented By: MAYE Non-Admin Reason: Cancelled by Provider Lactated Ringer's (Lactated Ringers) 500 mls @ 999 mls/hr IV .Q31M ONE Stop: 08/11/25 16:10 Insulin Human Regular (Insulin Hum Regular 1 Unit/0.01 Ml (Per Unit)) 10 unit IV X1 ONE Stop: 08/11/25 12:34 Last Admin: 08/11/25 12:33 Dose: Not Given Documented By: MAYE Non-Admin Reason: Cancelled by Provider Comments: verbally cancelled by provider Metoclopramide HCl (Metoclopramide Inj 5 Mg/Ml Vial 2 Ml) 10 mg IVP X1 ONE; Protocol Stop: 08/11/25 12:30 Last Admin: 08/11/25 12:44 Dose: 10 mg Documented By: CS Morphine Sulfate (Morphine Sulf Inj 4 Mg/Ml Vial) 4 mg IVP X1 ONE Stop: 08/11/25 14:47 Last Admin: 08/11/25 14:50 Dose: 4 mg Documented By: CS Ondansetron HCl (Ondansetron Odt 4 Mg Tabrap) 4 mg PO X1 ONE; Protocol Stop: 08/11/25 09:44 Last Admin: 08/11/25 10:08 Dose: 4 mg Documented By: GM Morphine, Zofran, Reglan, IV fluids 3 L, Pepcid Consultations Consultation(s) initiated? (list below): No Diagnosis Nausea Differential Diagnosis: gastroenteritis, dehydration and other Most likely diagnosis given after review of the tests above:: Diabetic ketoacidosis, cocaine abuse Admission Indicated Admission indicated?: not indicated Admission Request Was there a request for admission?: No Disposition Plan Disposition Plan: Discharge Discharge Attestation Discharge Attestation: The patient and all family members were given an opportunity to ask questions and understood the discharge instructions. Discharge instructions specifically effects, indications for sooner follow up or return to the emergency department, and the expected course of current diagnosis. Patient condition: Stable Discharge Plan Plan Patient Disposition: HOME (Self Care) Discharge Disposition comment: stable Prescriptions/Referrals Prescriptions/Med Rec: New metoclopramide HCl [Reglan] 10 mg tablet 10 mg PO Q6H PRN (Reason: nausea and vomiting) Qty: 30 0RF famotidine [Pepcid] 40 mg tablet 40 mg PO BID Qty: 20 0RF No Action Levemir U-100 Insulin 100 U/ML solution 25 unit Sub-Q BID Qty: 0 pantoprazole [Protonix] 20 mg tablet,delayed release (DR/EC) 20 mg PO QDAY Qty: 20 0RF sucralfate [Carafate] 1 gram tablet 1 g PO BID Qty: 30 1RF promethazine 25 mg tablet 1 tab PO DAILY Patient Comments: TAKE 1 TABLET BY MOUTH EVERY 4 TO 6 HOURS NEEDED FOR NAUSEA OR VOMITING lisinopril 2.5 mg tablet 1 tab PO DAILY Patient Comments: TAKE 1 TABLET BY MOUTH DAILY ciprofloxacin HCl [Cipro] 500 mg tablet 500 mg PO BID Qty: 14 0RF dicyclomine 20 mg tablet 20 mg PO BID PRN (Reason: pain) Qty: 20 0RF Problem List Clinical Impression: Diabetic gastroparesis, Cocaine abuse Patient/Caregiver Discharge Instructions Discharge Activity: activity as tolerated Education Materials: Addiction: Getting Help, ED Diabetic Gastroparesis Additional Instructions: Thank you for the opportunity for serving you today. You are stable for d ischarged . You are advised to: Follow-up with your PCP in 1 to 2 days Return to ED for worsening of symptoms Increase oral fluids Take medication as prescribed Please stop abusing cocaine will worsen your diabetic gastroparesis. As your PCP to refer with your renal panel test in few days Print Language: Barbadian Stand Alone Forms: Alysha Award Info., Patient Portal Info Letter PA/SHOVELER Supervising Physician PA/SHOVELER Supervising Physician: MD Hussein
[2025-08-11 12:26] VITALS: BP 154/112; PULSE 110; RESP 20; TEMP 36.6; O2SAT 97
[2025-08-11] MEDS: FAMOTIDINE INJ 10 MG/ML VIAL 2 ML 20 MG IVP (12:43)
[2025-08-11] MEDS: RINGERS LACTATED 1000 ML 1,000 ML 999 ML IV ×3 (12:44→15:33)
[2025-08-11] MEDS: METOCLOPRAMIDE INJ 5 MG/ML VIAL 2 ML 10 MG IVP (12:44)
[2025-08-11] MEDS: MORPHINE SULF INJ 4 MG/ML VIAL IVP (14:50)
[2025-08-11 15:18] LABS: Anion Gap 14 (7-16); BUN/Creatinine Ratio 9 Ratio (12-20); Blood Urea Nitrogen 17 mg/dL (9-23); Calcium 10.4 mg/dL (8.3-10.6); Carbon Dioxide 26.9 mMol/L (20.0-31.0); Chloride 92 mMol/L (98-107); Creatinine (Component) 2.0 mg/dL (0.6-1.3); Estimated Creatinine Clearance 53.2 mL/min (>60); Glucose 377 mg/dL (74-106); Osmolality,Calculated 282 (275-295); Potassium 4.6 mMol/L (3.4-5.1); Sodium 133 mMol/L (136-145); eGFR 40 See Note
[2025-08-11 16:15] VITALS: BP 149/99; PULSE 97; RESP 16; TEMP 37; O2SAT 96
== END 2025-08-11 17:16 | disposition home or self-care (01) ==
PROVIDERS: Nurse Practitioner Family; Emergency Provider Emergency Medicine; PCP Nurse Practitioner Family
DX: K31.84 Gastroparesis (principal); Z79.4 Long term (current) use of insulin; E11.43 Type 2 diabetes mellitus with diabetic autonomic (poly)neuropathy; F14.10 Cocaine abuse, uncomplicated; I10 Essential (primary) hypertension
CPT/HCPCS: 36415; 80048; 80053; 80307; 81001; 83690; 85025; 96361; 96374; 96375; 99283; J2270; J2765; J3490; J7120; Q0162

== ENCOUNTER 2025-08-13 01:58 | Emergency (ER) | payer BC, SELFPAY ==
[2025-08-13 01:59] VITALS: BMI 29.2
[2025-08-13 02:05] VITALS: BP 136/79; PULSE 96; RESP 18; TEMP 37; O2SAT 99
--- NOTE | 2025-08-13 02:13 | PD.EDABDPN ---
ED Abdominal Pain RME/HPI General Chief Complaint: Chest Pain Stated complaint: CHEST PAIN, ABDOMINAL PAIN, SOB, VOMITING Time seen by provider: 08/13/25 02:22 Arrival date/time: 08/13/25 01:58 RME / HPI RME / HPI narrative: See [facility] for Dr. Coello's HPI documentation. Related Data Home Medications ?Medication ?Instructions ?Recorded ?Confirmed insulin detemir U-100 100 unit/mL 25 unit subcut BID #0 vials 10/23/16 07/01/22 subcutaneous solution (Levemir U-100 Insulin) lisinopril 2.5 mg tablet 1 tab PO DAILY 07/01/22 07/01/22 promethazine 25 mg tablet 1 tab PO DAILY 07/01/22 07/01/22 Previous Rx's ?Medication ?Instructions ?Recorded pantoprazole 20 mg tablet,delayed 20 mg PO QDAY #20 tabs 05/04/22 release (Protonix) sucralfate 1 gram tablet (Carafate) 1 g PO BID #30 tabs 05/04/22 ciprofloxacin HCl 500 mg tablet 500 mg PO BID #14 tabs 02/12/23 (Cipro) dicyclomine 20 mg tablet 20 mg PO BID PRN pain #20 tabs 02/12/23 famotidine 40 mg tablet (Pepcid) 40 mg PO BID #20 tabs 08/11/25 metoclopramide HCl 10 mg tablet 10 mg PO Q6H PRN nausea and 08/11/25 (Reglan) vomiting #30 tabs Allergies Allergy/AdvReac Type Severity Reaction Status Date / Time No Known Allergies Allergy Verified 08/11/25 09:15 Review of Systems Review of Systems Systems Reviewed: All systems reviewed, normal except as documented Past Medical History Past Medical History NEUROLOGIC: Negative Neurological Disorders, Seizures or Migraine CARDIAC: Positive Cardiac Disorders, Hypercholesterolemia and Hypertension; Negative Congestive Heart Failure RESPIRATORY: Negative Chronic Obstructive Pulmonary Disease (COPD), Asthma or Sleep Apnea GASTROINTESTINAL: Negative Gastrointestinal Disorders GENITOURINARY: Negative Renal Disease MUSCULOSKELETAL: Positive Musculoskeletal Disorders ENDOCRINE: Positive Endocrine Disorders and Diabetes Mellitus Type 2; Negative Diabetes Mellitus Type 1 HEMATOLOGIC: Negative Sickle Cell Disease OTHER HISTORY: Negative Blood Transfusions, Anesthesia Reactions or Cancer Surgical History SURGICAL: Negative Cardiac Surgery, Endocrine Surgery, Ear Surgery, Abdominal Surgery, Nephrectomy, Joint Replacement or Neurologic Surgery Social History SMOKING STATUS: Never smoker ED Exam Narrative Physical exam: See [facility] for Dr. Coello's physical exam documentation. Course Quality Measures none Orders Category Date Time Status CT Screening NOW Care 08/13/25 02:17 Active EKG (ED ONLY) *Do not use* NOW Care 08/13/25 02:16 Completed Glucose [Bedside Blood Glucose] NOW Care 08/13/25 02:14 Active Saline [Insert IV] NOW Care 08/13/25 02:15 Active Straight [In and Out Catheter] X1 Care 08/13/25 02:[address] abdomen pelvis w con Stat Exams 08/13/25 02:[address] angio chest Stat Exams 08/13/25 02:18 Taken EKG (ED Only) Stat Exams 08/13/25 02:16 Draft US gall bladder Stat Exams 08/13/25 02:20 Taken XR chest 1V portable Stat Exams 08/13/25 02:16 Taken ABG [Arterial Blood Gas] Stat Lab 08/13/25 03:25 Completed Alcohol, Blood Medical Stat Lab 08/13/25 02:30 Completed Amylase Stat Lab 08/13/25 02:30 Completed BNP [B-Type Natriuretic Peptide] Stat Lab 08/13/25 02:30 Completed Beta Hydroxybutyrate Stat Lab 08/13/25 02:30 Completed Bilirubin,Direct Stat Lab 08/13/25 02:30 Completed Blood Culture (Lab) Stat Lab 08/13/25 02:38 Received CBC Stat Lab 08/13/25 02:30 Completed CK [Creatine Kinase] Stat Lab 08/13/25 02:30 Completed CMP [Comprehensive Metabolic Panel] Stat Lab 08/13/25 02:30 Completed CRP [C-Reactive Protein] Stat Lab 08/13/25 02:30 Completed D-Dimer Stat Lab 08/13/25 02:30 Completed Drug Screen,Urine Stat Lab 08/13/25 03:15 Completed ESR [Sed Rate (ESR)] Stat Lab 08/13/25 02:30 Completed Hemoglobin A1C [Glycohemoglobin w (eAG)] Stat Lab 08/13/25 02:30 Completed Lactate (Lactic Acid) Stat Lab 08/13/25 02:30 Results Lactic Acid, 3 HR Stat Lab 08/13/25 05:41 Ordered Lipase Stat Lab 08/13/25 02:30 Completed Magnesium Stat Lab 08/13/25 02:30 Completed Procalcitonin Stat Lab 08/13/25 02:30 Completed TSH [Thyroid Stimulating Hormone] Stat Lab 08/13/25 02:30 Completed Troponin I Stat Lab 08/13/25 02:30 Completed UA, C/S IF [Urinalysis, C/S if Indicated] Stat Lab 08/13/25 03:15 Completed Famotidine Inj [Pepcid Inj] Med 08/13/25 02:15 Discontinued 20 mg IVP X1 ONE Ketorolac Inj [Toradol Inj] Med 08/13/25 02:15 Discontinued 30 mg IVP X1 ONE Ondansetron Inj [Zofran Inj] Med 08/13/25 02:15 Discontinued 4 mg IVP X1 ONE Pantoprazole [Protonix] Med 08/13/25 02:15 Discontinued 40 mg PO X1 ONE Ringers Lactated 1000 ml [Lactated Ringers] 1,000 ml Med 08/13/25 03:21 Discontinued IV 1,000 mls/hr Ringers Lactated 1000 ml [Lactated Ringers] 1,000 ml Med 08/13/25 05:41 Ordered IV 1,000 mls/hr Sodium Chloride 0.9% 1000 ml [Ns] 1,000 ml Med 08/13/25 02:15 Discontinued IV 999 mls/hr Vital Signs Vital signs: Vital Signs Temperature 98.6 F 08/13/25 02:05 Pulse Rate 96 08/13/25 02:05 Respiratory Rate 18 08/13/25 02:05 Blood Pressure 136/79 H 08/13/25 02:05 Pulse Oximetry (%) 99 08/13/25 02:05 Oxygen Delivery Method Room Air 08/13/25 02:05 Abdominal Pain MDM MDM Narrative MDM Narrative:: This section includes all my notes and documentations, including HPI, PE, and ED course. Corky Coello MD HPI: 50-year-old male here with several days of chest pain and abdominal pain and vomiting. Severely worse in the past few hours. He was seen here today before yesterday. Reports only blood tests performed. He has trouble localizing his pain further. He has trouble describing the quality and quantity of his pain. Uncertain of exacerbating factors and relieving factors. No hematemesis or coffee-ground emesis. No rectal bleeding or tarry stools. No history of abdominal surgery. No other complaints. ROS: All negative except as documented in HPI. Physical Exam: General: Alert and oriented. Appears uncomfortable. Eyes: Conjunctivae and lids clear. ENT: No nasal congestion. Neck: Supple. Heart: RRR. Lungs: No respiratory distress. Good air movement. No rhonchi, wheezing, rales. Chest: Tenderness with palpation anteriorly. Abdomen: Soft with severe tenderness, difficult to localize. Normal bowel sounds. No distension. No rebound or guarding. Back: No CVA tenderness. Skin: Warm and dry. Neuro: Alert and oriented X 3. I reviewed all diagnostic test results. My interpretation of the EKG is sinus rhythm with nonspecific ST-T changes. My interpretation of the chest x-ray is no acute findings. Blood/urine tests remarkable for Hgb 17.7, Cr 1.4, Glu 190, lactic acid 3.4, CK 1833, and positive UDS for opiates. Gallbladder US and CT reports pending. At this point, diagnoses include: Chest pain Abdominal pain Rhabdomyolysis Treatment here included: IVF Zofran 4 mg IV Toradol 30 mg IV Famotidine 20 mg IV Protonix 40 mg IV Some improvement noted. At 6 AM on 08/13/2025, the care of the patient was transferred to Dr. VILLARREAL. Corky Coello MD Patient data External records reviewed:: [facility] previous records (Per chart review, patient was seen here on 08/11/25 for cocaine abuse.) Clinical information provided by:: patient Social determinants that could affect healthcare access:: substance use (cocaine use) Patient has the following chronic illnesses:: DM, HTN How is presenting disease/condition affected by chronic disease/condition?: uneffected by Evaluation data The following diagnostics were reviewed and interpreted by me:: lab results, radiology exam(s) and EKG tracing(s) (My interpretation of the EKG is: Sinus rhythm (103 bpm) with nonspecific ST-T changes. Corky Coello MD) Lab and/or radiology exams considered but not ordered:: none Interpretation Summary: I reviewed all diagnostic test results. My interpretation of the EKG is sinus rhythm with nonspecific ST-T changes. My interpretation of the chest x-ray is no acute findings. Blood/urine tests remarkable for Hgb 17.7, Cr 1.4, Glu 190, lactic acid 3.4, CK 1833, and positive UDS for opiates. Gallbladder US and CT reports pending. Medications / Prescriptions Medications or Prescriptions considered but not ordered:: none Medication administrations:: Medication Administration History Lactated Ringer's (Lactated Ringers) 1,000 mls @ 1,000 mls/hr IV .Q1H ONE Stop: 08/13/25 06:40 Discontinued Medications Famotidine (Famotidine Inj 10 Mg/Ml Vial 2 Ml) 20 mg IVP X1 ONE Stop: 08/13/25 02:16 Last Admin: 08/13/25 02:42 Dose: 20 mg Documented By: GEOVANNY Sodium Chloride (Ns) 1,000 mls @ 999 mls/hr IV .Q1H1M ONE Stop: 08/13/25 03:15 Last Infusion: 08/13/25 03:45 Dose: Infused Documented By: Admin: 08/13/25 02:43 Dose: 999 mls/hr Documented By: GEOVANNY Lactated Ringer's (Lactated Ringers) 1,000 mls @ 1,000 mls/hr IV .Q1H ONE Stop: 08/13/25 04:20 Last Infusion: 08/13/25 04:44 Dose: Infused Documented By: Admin: 08/13/25 03:34 Dose: 1,000 mls/hr Documented By: SOLANGE Ketorolac Tromethamine (Ketorolac Inj 30 Mg/Ml Vial) 30 mg IVP X1 ONE Stop: 08/13/25 02:16 Last Admin: 08/13/25 02:43 Dose: 30 mg Documented By: GEOVANNY Ondansetron HCl (Ondansetron Inj 2 Mg/Ml Inj 2 Ml) 4 mg IVP X1 ONE; Protocol Stop: 08/13/25 02:16 Last Admin: 08/13/25 02:43 Dose: 4 mg Documented By: GEOVANNY Pantoprazole Sodium (Pantoprazole 40 Mg Tablet) 40 mg PO X1 ONE Stop: 08/13/25 02:16 Last Admin: 08/13/25 02:43 Dose: 40 mg Documented By: GEOVANNY Treatment here included: IVF Zofran 4 mg IV Toradol 30 mg IV Famotidine 20 mg IV Protonix 40 mg IV Consultations Consultation(s) initiated? (list below): No Diagnosis Differential diagnosis abdominal pain: acute appendicitis, calculus of kidney, constipation, diverticulitis, gastroenteritis, pancreatitis and small bowel obstruction Most likely diagnosis given after review of the tests above:: Before complete diagnostic tests, diagnoses include: Chest pain of unclear etiology Abdominal pain of unclear etiology Rhabdomyolysis Admission Indicated Admission indicated?: not indicated Explain why admission is indicated or not indicated:: Complete diagnostic tests are pending. Admission Request Was there a request for admission?: No Disposition Plan Disposition Plan: other (specify) (At 6 AM on 08/13/2025, the care of the patient was transferred to Dr. VILLARREAL.) Discharge Plan Prescriptions/Referrals Prescriptions/Med Rec: No Action Levemir U-100 Insulin 100 U/ML solution 25 unit Sub-Q BID Qty: 0 pantoprazole [Protonix] 20 mg tablet,delayed release (DR/EC) 20 mg PO QDAY Qty: 20 0RF sucralfate [Carafate] 1 gram tablet 1 g PO BID Qty: 30 1RF promethazine 25 mg tablet 1 tab PO DAILY Patient Comments: TAKE 1 TABLET BY MOUTH EVERY 4 TO 6 HOURS NEEDED FOR NAUSEA OR VOMITING lisinopril 2.5 mg tablet 1 tab PO DAILY Patient Comments: TAKE 1 TABLET BY MOUTH DAILY ciprofloxacin HCl [Cipro] 500 mg tablet 500 mg PO BID Qty: 14 0RF dicyclomine 20 mg tablet 20 mg PO BID PRN (Reason: pain) Qty: 20 0RF metoclopramide HCl [Reglan] 10 mg tablet 10 mg PO Q6H PRN (Reason: nausea and vomiting) Qty: 30 0RF famotidine [Pepcid] 40 mg tablet 40 mg PO BID Qty: 20 0RF Referrals: Giana Scherer PA-C ([facility]) [Primary Care Provider] - In 1 week Problem List Clinical Impression: Chest pain, Abdominal pain, Rhabdomyolysis Patient/Caregiver Discharge Instructions Print Language: Cymraes
--- NOTE | 2025-08-13 02:16 | XR_ITS ---
EXAMINATION: AP chest single view TECHNIQUE: AP portable upright chest single view Date and time: August 13, 2025, 0409 hours, comparison 06/12/2025 INDICATIONS: Shortness of breath today FINDINGS: Mild enlargement cardiac contour. Mild vascular congestion. No lobar pneumonia or pulmonary edema. The Bogdan structures are intact IMPRESSION: Mild enlargement cardiac contour. No pneumonia or pulmonary edema.
--- NOTE | 2025-08-13 02:16 | EKG_ITS ---
[facility] Test Date: 2025-08-13 Pat Name: TAN BARRIOS Department: Room: - Gender: Male [employer]: : 1975 Requested By: Corky Rubi Order Number: [id number] Reading MD: Corky Rubi Measurements Intervals [place] Rate: 103 P: 50 MD: 167 QRS: 25 QRSD: 115 T: 88 QT: 344 QTc: 452 Interpretive Statements SINUS TACHYCARDIA MODERATE INTRAVENTRICULAR CONDUCTION DELAY [105+ ms QRS DURATION, 80+ ms Q/S IN V1/V2, NO Q AND 60+ ms R IN I/aVL/V5/V6] NONSPECIFIC T-WAVE ABNORMALITY Compared to ECG 06/12/2025 00:58:28 No significant changes /store/S0/[id number]
--- NOTE | 2025-08-13 02:17 | XR_ITS ---
Examination: CT abdomen with intravenous contrast CT pelvis with intravenous contrast 2-D coronal reconstructions 2-D sagittal reconstructions Date and time of exam: August 13, 2025, 0408 hours, comparison April 16, 2025 INDICATIONS: Onset abdominal pain today. CTDI: vol (mGy) 8.44 DLP: (mGycm) 536 Technique: Multiple axial sections of the abdomen and pelvis have been obtained. 64 slice high-resolution scanner used. 3 mm axial sections have been obtained, post intravenous injection 60 cc Isovue 370 2-D sagittal, coronal reconstructions obtained. Low dose protocols were performed. One or more of the following dose reduction techniques were used; automated exposure control, adjustment of the mA and/or KV according to patient size, use of iterative reconstruction technique. Findings: 10 mm splenic cyst No biliary tract dilatation No gallstones No pancreatic or adrenal mass No renal or ureteral calculi, no hydronephrosis Aorta normal size No bowel obstruction No pericecal inflammatory change Scattered colonic diverticulosis, no diverticulitis Mild urinary bladder wall thickening No significant prostatomegaly Grade 1 spondylolisthesis L5 on S1 with mild degenerative disc disease at this level IMPRESSION: No acute process in the abdomen or pelvis Mild urinary bladder wall thickening, consider cystitis
--- NOTE | 2025-08-13 02:18 | XR_ITS ---
Examination: CTA chest with intravenous contrast 2-D reconstructions 3-D reconstructions, vascular Date and time of exam: August 13, 2025, 0406 hours INDICATIONS: Onset chest pain shortness of breath today CTDI: vol (mGy) 9.15 DLP: (mGycm) 456 Technique: Multiple axial sections of the thorax have been obtained. 3 mm slice thickness, from below the hemidiaphragms to above the apices of the lungs. Mediastinal and lung density settings have been obtained. 2-D sagittal and coronal reconstructions. 3-D angiographic renderings, 3-D volume renderings, 3D post processing, vascular maximum intensity projections obtained. Contrast administered is 60 cc Isovue 300. Low dose protocols were performed. One or more of the following dose reduction techniques were used; automated exposure control, adjustment of the mA and/or KV according to patient size, use of iterative reconstruction technique. Findings: No thoracic aortic aneurysmal dilatation Main pulmonary artery segment measures 38 mm No pulmonary artery filling defects Mild enlargement cardiac contour. No paratracheal tracheobronchial or bronchopulmonary adenopathy. No pneumonia or pulmonary edema or pleural disease Fatty infiltration throughout the liver IMPRESSION: Negative for pulmonary artery emboli No mediastinal lymphadenopathy No pneumonia, pulmonary edema or pleural disease
--- NOTE | 2025-08-13 02:20 | XR_ITS ---
Examination: Abdomen sonogram, Limited Date and time of exam: August 13, 2025, 0344 hours INDICATIONS: Right upper abdominal pain beginning today Technique: Real-time simpson scale transabdominal sonographic images of the upper abdomen obtained. Findings: Normal gallbladder. Normal common bile duct 0.2 cm Pancreatic head 2.5 cm Liver 17.2 cm fatty infiltration smooth contour no focal liver lesions Normal Valpeda portal venous flow Patent IVC IMPRESSION: Normal gallbladder Normal common bile duct
[2025-08-13 02:40] VITALS: BP 132/102; PULSE 87; RESP 14; TEMP 36.5; O2SAT 92
[2025-08-13] MEDS: FAMOTIDINE INJ 10 MG/ML VIAL 2 ML 20 MG IVP (02:42)
[2025-08-13] MEDS: ONDANSETRON INJ 2 MG/ML INJ 2 ML 4 MG IVP ×2 (02:43→09:16)
[2025-08-13] MEDS: KETOROLAC INJ 30 MG/ML VIAL IVP (02:43)
[2025-08-13] MEDS: SODIUM CHLORIDE 0.9% 1000 ML 1,000 ML 999 ML IV (02:43)
[2025-08-13] MEDS: PANTOPRAZOLE 40 MG TABLET PO (02:43)
[2025-08-13 02:47] LABS: Basophils # (Auto) 0.1 Thou/mm3 (0.0-0.2); Basophils % (Auto) 1 % (0-2.5); Eosinophils # (Auto) 0.0 Thou/mm3 (0.0-0.5); Eosinophils % (Auto) 0 % (0-10); Hematocrit 51.9 % (41.0-53.0); Hemoglobin 17.7 g/dL (13.5-16.0); Immature Granulocytes Auto 0.02 Thou/mm3 (0.00-0.00); Lactate (Lactic Acid) 2.4 mMol/L (0.4-2.0); Lymphocytes # (Auto) 1.7 Thou/mm3 (1.0-4.8); Lymphocytes % (Auto) 25 % (10-50); Mean Corpuscular HGB Conc 34.1 g/dl (31.0-37.0); Mean Corpuscular Hemoglobin 28.6 pg (25.0-35.0); Mean Corpuscular Volume 84 fL (80-100); Monocytes # (Auto) 0.5 Thou/mm3 (0.0-0.8); Monocytes % (Auto) 7 % (0-12); Neutrophils # (Auto) 4.6 Thou/mm3 (1.8-7.7); Neutrophils % (Auto) 66 % (37-80); Nucleated Red Blood Cell # 0.00 Thou/mm3 (0.00-0.00); Nucleated Red Blood Cell % 0 /100 WBC (0); Platelet Count 320 Thou/mm3 (140-440); RDW Standard Deviation 37.1 fL (35.1-43.9); Red Blood Count 6.18 Miln/mm3 (4.50-5.90); White Blood Count 6.9 Thou/mm3 (3.8-10.6)
[2025-08-13 02:50] LABS: Beta Hydroxybutyrate 0.2 mmol/L (<0.6)
[2025-08-13 02:54] LABS: Sed Rate (ESR) 25 mm/hr (0-15)
[2025-08-13 03:00] LABS: Glucose Estimated Average 197 mg/dL (80-131); Hemoglobin A1C 8.5 % Hgb (4.8-6.0)
[2025-08-13 03:04] LABS: B-Type Natriuretic Peptide 111 pg/mL (0-100)
[2025-08-13 03:09] LABS: D-Dimer < 250 ng/mL (<600)
[2025-08-13 03:17] LABS: Alanine Aminotransferase 24 U/L (10-49); Albumin, Serum 5.5 gm/dL (3.5-5.0); Albumin/Globulin Ratio 2.0 (1.2-2.2); Alcohol, Blood Medical < 3.0 mg/dL (0-10.0); Alkaline Phosphatase 72 U/L (46-116); Amylase 130 U/L (30-118); Anion Gap 11 (7-16); Aspartate Amino Transferase 54 U/L (0-34); BUN/Creatinine Ratio 16 Ratio (12-20); Bilirubin,Direct 0.2 mg/dL (0.0-0.3); Bilirubin,Total 0.6 mg/dL (0.3-1.2); Blood Urea Nitrogen 22 mg/dL (9-23); C-Reactive Protein < 0.5 mg/dL (0.0-0.9); Calcium 10.3 mg/dL (8.3-10.6); Calcium (Corrected) 10.3 mg/dL (8.5-10.1); Carbon Dioxide 31.2 mMol/L (20.0-31.0); Chloride 95 mMol/L (98-107); Creatine Kinase 1833 U/L (34-171); Creatinine (Component) 1.4 mg/dL (0.6-1.3); Estimated Creatinine Clearance 76.0 mL/min (>60); Globulin 2.8 gm/dL (2.3-3.5); Glucose 190 mg/dL (74-106); Lipase 29 U/L (12-53); Magnesium 2.5 mg/dL (1.6-2.6); Osmolality,Calculated 282 (275-295); Potassium 3.6 mMol/L (3.4-5.1); Procalcitonin < 0.04 ng/ml (0.0-0.49); Sodium 137 mMol/L (136-145); Thyroid Stimulating Hormone 1.72 uIU/mL (0.55-4.78); Total Protein 8.3 gm/dL (5.7-8.2); Troponin I < 0.020 ng/mL (0.0-0.045); eGFR > 60 See Note
[2025-08-13 03:21] LABS: Collection Type, Urine Clean Catch
[2025-08-13 03:29] LABS: Base Excess 5 (-3-3); HCO3 31 mEq/L (20-26); Inspired Oxygen, FIO2 21 %; O2 Saturation 97 % (91-98); PCO2 45 mmHg (32.0-48.0); PO2 79 mmHg (83-108); pH, Arterial 7.44 (7.35-7.45)
[2025-08-13 03:29] LABS: Bacteria,Urine Rare; Bilirubin,Urine Negative (Negative); Blood,Urine Negative (Negative); Clarity,Urine Clear (Clear/Hazy); Color,Urine Yellow (Lt Yel-Yel); Culture Indicated,Urine Not Indicated; Glucose, Urine 4+ (Negative); Hyaline Casts,Urine < 1 /hpf (0-1); Ketones,Urine Negative (Negative); Leukocyte Esterase,Urine Negative (Negative); Nitrite,Urine Negative (Negative); PH,Urine 5.5 (5.0-7.0); Protein,Urine 1+ (Neg - Trace); RBC,Urine 5 /hpf (0-3); Specific Gravity,Urine 1.038 (1.001-1.035); Squamous Epithelial Cell,Urine 5 /hpf (0-5); Urobilinogen,Urine Negative mg/dL (0.0-1.0); WBC,Urine 3 /hpf (0-5)
[2025-08-13 03:32] LABS: Allen Test Performed/OK; Puncture Site Left Radial
[2025-08-13] MEDS: RINGERS LACTATED 1000 ML 1,000 ML IV ×2 (03:34→05:58)
[2025-08-13 03:37] LABS: Amphetamine/Methamp Scrn,U Negative (Negative); Barbiturate Screen,Urine Negative (Negative); Benzodiazepines Screen,Urine Negative (Negative); Benzoylecgonine Screen, Ur Negative (Negative); Fentanyl Screen,Urine Negative (Negative); Opiate Screen,Urine Positive (Negative); THC Screen,Urine Negative (Negative)
[2025-08-13 04:02] VITALS: BP 156/107; PULSE 84; RESP 18; TEMP 37.2; O2SAT 97
[2025-08-13 05:41] LABS: Reflex Lactate? Y
[2025-08-13 06:05] VITALS: BP 157/99; PULSE 89; RESP 16; TEMP 37.2; O2SAT 96
[2025-08-13 06:10] LABS: Lactic Acid, 3 HR 1.5 mMol/L (0.4-2.0)
--- NOTE | 2025-08-13 06:37 | EDNOTE_ITS ---
<Statement entered by Nicky Santillan MD - 08/15/25 17:56> I, Nicky Santillan MD, have reviewed the history, exam, and assessment of the patient. I have evaluated the patient independently and agree with the plan of care documented by [ ]. All diagnostic studies were reviewed and discussed. I confirm the diagnosis as documented by the Resident. I was present during the Medical Decision Making for this patient. The patient's plan of care was created between myself and the Resident and consistent with our discussion of the patient's case. ED Abdominal Pain RME/HPI General Chief Complaint: Chest Pain Stated complaint: CHEST PAIN, ABDOMINAL PAIN, SOB, VOMITING Time seen by provider: 08/13/25 02:22 Arrival date/time: 08/13/25 01:58 RME / HPI RME / HPI narrative: See [facility] for Dr. Coello's HPI documentation. Patient is a 50 year old female with a past medical history of hypertension, diabetes mellitus type 2 insulin depdent who presented with chief complain of diffuse abdominal pain and naseau/vomiting at home. Patient stated he follow Dr. Davidson for gastroenterology with a recent EGD startede on sucrafate and possible concern for hiatal hernia that may have been noted on EGD. Patient has a past medical history of cocaine use but denied use within the last week. Utox noted for opioids. 6:[address] abodment and US of gallbladder. 7:[address] Angio: No CT evidence of pulmonary thromboembolism or other acute intrathoracic pathology. Related Data Home Medications ?Medication ?Instructions ?Recorded ?Confirmed insulin detemir U-100 100 unit/mL 25 unit subcut BID # 0 vials 10/23/16 07/01/22 subcutaneous solution (Levemir U-100 Insulin) lisinopril 2.5 mg tablet 1 tab PO DAILY 07/01/2206/12 promethazine 25 mg tablet 1 tab PO DAILY 07/01/2206/12 Previous Rx's ?Medication ?Instructions ?Recorded pantoprazole 20 mg tablet,delayed 20 mg PO QDAY #20 ta bs 05/04/22 release (Protonix) sucralfate 1 gram tablet (Carafate) 1 g PO BID #30 tab s 05/04/22 dicyclomine 20 mg tablet 20 mg PO BID PRN pain #20 ta bs 02/12/23 metoclopramide HCl 10 mg tablet 10 mg PO Q6H PRN nause a and 08/11/25 (Reglan) vomiting #30 tabs polyethylene glycol 3350 17 4 g PO QDAY PRN constipati on #119 08/13/25 gram/dose oral powder (Miralax) grams Allergies Allergy/AdvReac Type Severity Reaction Status Date / Time No Known Allergies Allergy Verified 08/11/25 09:15 Review of Systems Review of Systems Narrative Review of Systems: General appearance: NO weight change, NO fatigue, NO weakness, NO fever, NO chills, NO night sweats, No cough Skin: NO rash, NO itching, NO sores, NO moles HEENT: NO Trauma, NO nausea, NO vomiting, NO visual changes, NO blurry vision, NO double vision, NO tinnitus, NO vertigo, NO ear discharge, NO rhinorrhea, NO stuffiness, NO sneezing, NO allergy, NO epistaxis. NO Hoarseness, NO sore throat, NO swollen neck. Cardiac: NO Palpitations, NO dyspnea on exertion, NO orthopnea, NO paroxysmal nocturnal dyspnea, NO edema Respiratory: NO Shortness of Breath, NO Wheezing, NO Cough, NO Sputum, NO hemoptysis GI:NO appetite, YES nausea, Yes vomiting, NO dysphagia, NO changes in bowel frequency, NO stool color, NO diarrhea, NO constipation, NO hemetemesis, NO hemorrhoids, NO melena, NO hematechezia, YES abdominal pain, NO jaundice Renal: NO frequency, NO hesitancy, NO urgency, NO hematuria, NO nocturia, NO incontinence MSK: NO muscle weakness, NO gout, NO arthritis, NO muscle stiffness Neuro: NO headaches, NO tremors, NO weakness, NO paralysis, NO seizures, NO loss of consciousness, NO numbness. Hem: NO anemia, NO easy bruising/bleeding, NO petechiae, NO purpura Endo: NO heat/cold intolerance, NO excessive sweating, NO polyuria, NO polyd ipsia, NO polyphagia, NO thyroid problems, NO diabetes Pysch: NO mood, NO anxiety, NO depression ED Exam Narrative Physical exam: General Appearance: Alert & Oriented X3, well-nourished male who is lying in bed in no acute distress HEENT: Skull symmetrical and atraumatic. Conjunctivae pin and moist. Pupils equal, round, reactive to light and accommodation (PERRL). External ear without lesion or discharge. Straight, nares patient, mucosa pink, no discharge. No thyroid nodule appreciated. No cervical lymphadenopathy. Cardio: Normal Rate and Rhythm with S1 and S2 heart sounds. No murmurs or extra heart sounds auscultated. No bruits on carotid auscultation. No peripheral edema or cyanosis. Lungs: Symmetric with good expansion. Chest and back non-tender. Breath sounds vesicular without crackles, wheezing or rhonchi Abdomen: Non-tender, Non-distended, hypoactive Reactive Bowel Sounds Neuro: Alert, cooperative, oriented to person, place, and time. Speech clear. CN grossly intact. Upper motor strength 5/5 and Lower motor strength 5/5. Sensation intact. Course Quality Measures none Orders Category Date Time Status CT Screening NOW Care 08/13/25 02:17 Completed EKG (ED ONLY) *Do not use* NOW Care 08/13/25 02:16 Completed Glucose [Bedside Blood Glucose] NOW Care 08/13/25 02:14 Completed Saline [Insert IV] NOW Care 08/13/25 02:15 Completed Straight [In and Out Catheter] X1 Care 08/13/25 02:[address] abdomen pelvis w con Stat Exams 08/13/25 02:[address] angio chest Stat Exams 08/13/25 02:18 Completed EKG (ED Only) Stat Exams 08/13/25 02:16 Draft US gall bladder Stat Exams 08/13/25 02:20 Completed XR chest 1V portable Stat Exams 08/13/25 02:16 Completed ABG [Arterial Blood Gas] Stat Lab 08/13/25 03:25 Completed Alcohol, Blood Medical Stat Lab 08/13/25 02:30 Completed Amylase Stat Lab 08/13/25 02:30 Completed BNP [B-Type Natriuretic Peptide] Stat Lab 08/13/25 02:30 Completed Beta Hydroxybutyrate Stat Lab 08/13/25 02:30 Completed Bilirubin,Direct Stat Lab 08/13/25 02:30 Completed Blood Culture (Lab) Stat Lab 08/13/25 02:38 Received CBC Stat Lab 08/13/25 02:30 Completed CK [Creatine Kinase] Stat Lab 08/13/25 02:30 Completed CMP [Comprehensive Metabolic Panel] Stat Lab 08/13/25 02:30 Completed CRP [C-Reactive Protein] Stat Lab 08/13/25 02:30 Completed D-Dimer Stat Lab 08/13/25 02:30 Completed Drug Screen,Urine Stat Lab 08/13/25 03:15 Completed ESR [Sed Rate (ESR)] Stat Lab 08/13/25 02:30 Completed Hemoglobin A1C [Glycohemoglobin w (eAG)] Stat Lab 08/13/25 02:30 Completed Lactate (Lactic Acid) Stat Lab 08/13/25 02:30 Completed Lactic Acid, 3 HR Stat Lab 08/13/25 06:06 Completed Lipase Stat Lab 08/13/25 02:30 Completed Magnesium Stat Lab 08/13/25 02:30 Completed Procalcitonin Stat Lab 08/13/25 02:30 Completed TSH [Thyroid Stimulating Hormone] Stat Lab 08/13/25 02:30 Completed Troponin I Stat Lab 08/13/25 02:30 Completed UA, C/S IF [Urinalysis, C/S if Indicated] Stat Lab 08/13/25 03:15 Completed Famotidine Inj [Pepcid Inj] Med 08/13/25 02:15 Discontinued 20 mg IVP X1 ONE Ketorolac Inj [Toradol Inj] Med 08/13/25 02:15 Discontinued 30 mg IVP X1 ONE Lactulose Syrup [Enulose Syrup] Med 08/13/25 09:17 Discontinued 20 gm PO X1 ONE Morphine* Inj Med 08/13/25 08:34 Discontinued 2 mg IVP X1 ONE Ondansetron Inj [Zofran Inj] Med 08/13/25 02:15 Discontinued 4 mg IVP X1 ONE Ondansetron Inj [Zofran Inj] Med 08/13/25 08:46 Discontinued 4 mg IVP X1 ONE Pantoprazole [Protonix] Med 08/13/25 02:15 Discontinued 40 mg PO X1 ONE Ringers Lactated 1000 ml [Lactated Ringers] 1,000 ml Med 08/13/25 03:21 Discontinued IV 1,000 mls/hr Ringers Lactated 1000 ml [Lactated Ringers] 1,000 ml Med 08/13/25 05:41 Discontinued IV 1,000 mls/hr Sodium Chloride 0.9% 1000 ml [Ns] 1,000 ml Med 08/13/25 02:15 Discontinued IV 999 mls/hr Vital Signs Vital signs: Vital Signs Temperature 98.6 F 08/13/25 02:05 Pulse Rate 96 08/13/25 02:05 Respiratory Rate 18 08/13/25 02:05 Blood Pressure 136/79 H 08/13/25 02:05 Pulse Oximetry (%) 99 08/13/25 02:05 Oxygen Delivery Method Room Air 08/13/25 02:05 Abdominal Pain MDM Patient data External records reviewed:: [facility] previous records Clinical information provided by:: patient Social determinants that could affect healthcare access:: none Patient has the following chronic illnesses:: HTN Diabetes Mellitus type 2 and gastritis, concern for history of hiatal hernia How is presenting disease/condition affected by chronic disease/condition?: exacerbated by Evaluation data The following diagnostics were reviewed and interpreted by me:: lab results Lab and/or radiology exams considered but not ordered:: none Interpretation Summary: CT Angio chest: No CT evidence of pulmonary thromboembolism or other acute intrathoracic pathology. (Prelim) CT Abdomen: No evidence of bowel obstruction, free air or abscess. Urinary bladder is incompletely distended at the time of the examination and appears mildly thick walled, inappropriate clinical setting cystitis cannot be excluded. Recommend clinical correlation Medications / Prescriptions Medications or Prescriptions considered but not ordered:: none Medication administrations:: Medication Administration History Discontinued Medications Famotidine (Famotidine Inj 10 Mg/Ml Vial 2 Ml) 20 mg IVP X1 ONE Stop: 08/13/25 02:16 Last Admin: 08/13/25 02:42 Dose: 20 mg Documented By: GEOVANNY Sodium Chloride (Ns) 1,000 mls @ 999 mls/hr IV .Q1H1M ONE Stop: 08/13/25 03:15 Last Infusion: 08/13/25 03:45 Dose: Infused Documented By: Admin: 08/13/25 02:43 Dose: 999 mls/hr Documented By: GEOVANNY Lactated Ringer's (Lactated Ringers) 1,000 mls @ 1,000 mls/hr IV .Q1H ONE Stop: 08/13/25 04:20 Last Infusion: 08/13/25 04:44 Dose: Infused Documented By: Admin: 08/13/25 03:34 Dose: 1,000 mls/hr Documented By: CB Lactated Ringer's (Lactated Ringers) 1,000 mls @ 1,000 mls/hr IV .Q1H ONE Stop: 08/13/25 06:40 Last Infusion: 08/13/25 07:10 Dose: Infused Documented By: Admin: 08/13/25 05:58 Dose: 1,000 mls/hr Documented By: GEOVANNY Ketorolac Tromethamine (Ketorolac Inj 30 Mg/Ml Vial) 30 mg IVP X1 ONE Stop: 08/13/25 02:16 Last Admin: 08/13/25 02:43 Dose: 30 mg Documented By: ELO2 Lactulose (Lactulose Syrup 20 Gm/30 Ml Udc) 20 gm PO X1 ONE; Protocol Stop: 08/13/25 09:18 Last Admin: 08/13/25 09:23 Dose: 20 gm Documented By: GM Morphine Sulfate (Morphine Sulf Inj 4 Mg/Ml Vial) 2 mg IVP X1 ONE Stop: 08/13/25 08:35 Last Admin: 08/13/25 09:14 Dose: 2 mg Documented By: GM Ondansetron HCl (Ondansetron Inj 2 Mg/Ml Inj 2 Ml) 4 mg IVP X1 ONE; Protocol Stop: 08/13/25 02:16 Last Admin: 08/13/25 02:43 Dose: 4 mg Documented By: GEOVANNY Ondansetron HCl (Ondansetron Inj 2 Mg/Ml Inj 2 Ml) 4 mg IVP X1 ONE; Protocol Stop: 08/13/25 08:47 Last Admin: 08/13/25 09:16 Dose: 4 mg Documented By: GM Pantoprazole Sodium (Pantoprazole 40 Mg Tablet) 40 mg PO X1 ONE Stop: 08/13/25 02:16 Last Admin: 08/13/25 02:43 Dose: 40 mg Documented By: GEOVANNY same as above Consultations Consultation(s) initiated? (list below): No Diagnosis Differential diagnosis abdominal pain: acute appendicitis, constipation and small bowel obstruction Most likely diagnosis given after review of the tests above:: Patient presented with diffuse abdominal pain, likely secondary to constipation as patient's last bowel movement Wednesday08/12/2025, less likely SBO as not noted on any images. Concerning that patient has a past medical history of substance use disorder, tested positive for opioids, which may be exacerbating presentation Admission Indicated Admission indicated?: not indicated Admission Request Was there a request for admission?: No Disposition Plan Disposition Plan: Discharge Discharge Attestation Discharge Attestation: The patient and all family members were given an opportunity to ask questions and understood the discharge instructions. Discharge instructions specifically effects, indications for sooner follow up or return to the emergency department, and the expected course of current diagnosis. Patient condition: Stable Discharge Plan Plan Patient Disposition: HOME (Self Care) Patient condition on transfer: Stable Health Concerns: Instructions: -Please take Miralax as you were noted to be constipated -STOP your famotidine and continue your most recent prescription of Protonix. Please do not take both at the same time. -Continue all other medication as prescribed -Please follow up with your primary care provider within one week of discharge -If your symptoms worsen,please seek immediate medical attention and return to your nearest emergency room -If you do not have a primary care provider, [facility], [place] [address], Prescriptions/Referrals Prescriptions/Med Rec: New polyethylene glycol 3350 [Miralax] 17 gram/dose powder 4 g PO QDAY PRN (Reason: constipation) Qty: 119 0RF Continued Levemir U-100 Insulin 100 U/ML solution 25 unit Sub-Q BID Qty: 0 pantoprazole [Protonix] 20 mg tablet,delayed release (DR/EC) 20 mg PO QDAY Qty: 20 0RF sucralfate [Carafate] 1 gram tablet 1 g PO BID Qty: 30 1RF promethazine 25 mg tablet 1 tab PO DAILY Patient Comments: TAKE 1 TABLET BY MOUTH EVERY 4 TO 6 HOURS NEEDED FOR NAUSEA OR VOMITING lisinopril 2.5 mg tablet 1 tab PO DAILY Patient Comments: TAKE 1 TABLET BY MOUTH DAILY dicyclomine 20 mg tablet 20 mg PO BID PRN (Reason: pain) Qty: 20 0RF metoclopramide HCl [Reglan] 10 mg tablet 10 mg PO Q6H PRN (Reason: nausea and vomiting) Qty: 30 0RF Discontinued ciprofloxacin HCl [Cipro] 500 mg tablet 500 mg PO BID Qty: 14 0RF famotidine [Pepcid] 40 mg tablet 40 mg PO BID Qty: 20 0RF Referrals: Gilmer(Erin),DIETER Faria [Primary Care Provider] - In 1 week Problem List Clinical Impression: Chest pain, Abdominal pain, Rhabdomyolysis Patient/Caregiver Discharge Instructions Education Materials: ED Constipation (Adult) Print Language: Thai Stand Alone Forms: Alysha Award Info., Patient Portal Info Letter
--- NOTE | 2025-08-13 06:41 | PRELIM_ITS ---
CT angiogram of the chest with intravenous contrast (axial sections with sagittal and coronal reformats) August 13, 2025 0408 hours Clinical History: SOB Technique:Helical axial sections with sagittal and coronal reformats of the chest were obtained with intravenous contrast. Iterative reconstruction technique was employed to reduce patient radiation exposure. 3D/MIP reconstructed images were also provided. Comparison: No prior study is available for comparison. Findings: There is no filling defect within the pulmonary artery divisions to suggest pulmonary thromboembolism. The mediastinum demonstrates no evidence of mass or lymphadenopathy. The thoracic aorta is unremarkable. There is no pericardial effusion. The lungs are clear. No evidence of pleural effusion or pneumothorax. The osseous structures are unremarkable. Impression: No CT evidence of pulmonary thromboembolism or other acute intrathoracic pathology. Report on abdomen CT to follow Report Electronically Signed By: Muriel Baez 08/13/2025 6:41:00 AM [EST]
--- NOTE | 2025-08-13 06:50 | PRELIM_ITS ---
CT scan of the abdomen and pelvis with intravenous contrast (axial sections with sagittal and coronal reformats) August 13, 2025 0408 hours Clinical History: ABD PAIN Comparison: No prior study is available for comparison. Findings: There is a hypodensity in the spleen, measuring 13 mm, which may represent cyst. The liver, gallbladder, pancreas, kidneys and adrenals are unremarkable. No evidence of bowel obstruction. A moderate amount of fecal material is present in the colon. The appendix is within normal limits (coronal images 54- 81/152). There is no mesenteric or retroperitoneal adenopathy. The urinary bladder is incompletely distended at the time of the examination and appears mildly thick walled. There is no free fluid or free air. Pars interarticularis defects are noted at L5 bilaterally. Impression: No evidence of bowel obstruction, free air or abscess. c Urinary bladder is incompletely distended at the time of the examination and appears mildly thick walled, inappropriate clinical setting cystitis cannot be excluded. Recommend clinical correlation Report Electronically Signed By: Muriel Baez 08/13/2025 6:50:01 AM [EST]
--- NOTE | 2025-08-13 07:00 | PC.NURSE ---
SBAR REPORT RECEIVED FROM ALESSANDRO WHARTON AT THIS TIME; PER ALESSANDRO WHARTON, PT COMING IN WITH C/O SOB, N/V, DIZZINESS, & CHEST PAIN. PT HAS 20G TO R AC. PT RECEIVED 1L OF NS, 2L OF LR. HIS KIDNEY FUNCTION LEVELS ARE ABNORMAL AND HIS CK IS HIGH. WE'RE WAITING FOR GALLBLADDER ULTRASOUND TO BE RESULTED AT THIS TIME. THE PRELIMINARY REPORT FOR CTA OF THE CHEST WAS NEGATIVE. UPON ASSESSMENT, PT IS LAYING COMFORTABLY ON THE BED WITH NO ACUTE DISTRESS NOTED AT THIS TIME WITH EQUAL CHEST RISE & FALL. PT CONNECTED TO MONITORS WELL.
[2025-08-13 07:07] VITALS: BP 161/103; PULSE 109; RESP 15; TEMP 37.2; O2SAT 94
[2025-08-13] MEDS: MORPHINE SULF INJ 4 MG/ML VIAL 2 MG IVP (09:14)
[2025-08-13] MEDS: LACTULOSE SYRUP 20 GM/30 ML UDC PO (09:23)
[2025-08-13 09:25] VITALS: BP 148/101; PULSE 108; RESP 18; TEMP 36.8; O2SAT 95
== END 2025-08-13 09:34 | disposition home or self-care (01) ==
PROVIDERS: Emergency Provider Emergency Medicine; PCP Nurse Practitioner Family
DX: R10.84 Generalized abdominal pain (principal); R07.9 Chest pain, unspecified; M62.82 Rhabdomyolysis; R06.02 Shortness of breath
CPT/HCPCS: 36415; 36600; 71045; 71275; 74177; 76705; 80053; 80307; 80320; 81001; 82010; 82150; 82248; 82550; 82803; 83036; 83605; 83690; 83735; 83880; 84145; 84443; 84484; 85025; 85379; 85652; 86140; 87040; 93005; 96361; 96374; 96375; 96376; 99284; A4649; J1885; J2270; J2405; J3490; J7030; J7120; Q9967; A9270; G0480

== ENCOUNTER 2025-09-29 08:41 | Emergency (ER) | payer BC, SELFPAY ==
[2025-09-29 09:02] VITALS: BP 128/73; PULSE 108; RESP 20; TEMP 36.6; O2SAT 98; BMI 29.2
--- NOTE | 2025-09-29 09:08 | EDNOTE_ITS ---
ED Abdominal Pain RME/HPI General Chief Complaint: Nausea/Vomiting/Diarrhea Stated complaint: Vomiting X 5 days, no BM X 5 days Time seen by provider: 09/29/25 09:08 Arrival date/time: 09/29/25 08:41 RME / HPI RME / HPI narrative: See [facility] for Dr. Coello's HPI Exam Documentation. Related Data Home Medications ?Medication ?Instructions ?Recorded ?Confirmed insulin detemir U-100 100 unit/mL 25 unit subcut BID # 0 vials 10/23/16 07/01/22 subcutaneous solution (Levemir U-100 Insulin) lisinopril 2.5 mg tablet 1 tab PO DAILY 07/01/2206/12 promethazine 25 mg tablet 1 tab PO DAILY 07/01/2206/12 Previous Rx's ?Medication ?Instructions ?Recorded pantoprazole 20 mg tablet,delayed 20 mg PO QDAY #20 ta bs 05/04/22 release (Protonix) sucralfate 1 gram tablet (Carafate) 1 g PO BID #30 tab s 05/04/22 dicyclomine 20 mg tablet 20 mg PO BID PRN pain #20 ta bs 02/12/23 metoclopramide HCl 10 mg tablet 10 mg PO Q6H PRN nause a and 08/11/25 (Reglan) vomiting #30 tabs polyethylene glycol 3350 17 4 g PO QDAY PRN constipati on #119 08/13/25 gram/dose oral powder (Miralax) grams ondansetron 4 mg disintegrating 4 mg PO TID PRN nausea and 09/29/25 tablet vomiting 30 days #10 tabs sennosides 8.6 mg-docusate sodium 4 tab-cap (4 x 8.6-5 0 mg) PO QDAY 09/29/25 50 mg tablet (Senokot-S) PRN constipation #20 tabs peg 3350-electrolytes 236 240 ml PO Q10M #4,000 mL gram-22.74 gram-6.74 gram-5.86 gram solution (GaviLyte-G) Allergies Allergy/AdvReac Type Severity Reaction Status Date / Time No Known Allergies Allergy Verified 09/30/25 16:42 Review of Systems Review of Systems Systems Reviewed: All systems reviewed, normal except as documented Past Medical History Past Medical History CARDIAC: Positive Hypercholesterolemia and Hypertension MUSCULOSKELETAL: Positive Musculoskeletal Disorders ENDOCRINE: Positive Endocrine Disorders and Diabetes Mellitus Type 2 (PT TAKES LANTUS) Social History SMOKING STATUS: Current every day smoker ED Exam Narrative Physical exam: See [facility] for Dr. Coello's Physical Exam Documentation. Course Quality Measures none Orders Category Date Time Status Saline [Insert IV] NOW Care 09/29/25 09:10 Completed Straight [In and Out Catheter] X1 Care 09/29/25 09:[address] abdomen pelvis wo con Stat Exams 09/29/25 09:10 Completed US abdomen limited Stat Exams 09/29/25 09:11 Completed ABG [Arterial Blood Gas] Stat Lab 09/29/25 10:12 Completed Alcohol, Blood Medical Stat Lab 09/29/25 09:50 Completed Amylase Stat Lab 09/29/25 09:50 Completed BNP [B-Type Natriuretic Peptide] Stat Lab 09/29/25 09:50 Completed Beta Hydroxybutyrate Stat Lab 09/29/25 09:50 Completed Bilirubin,Direct Stat Lab 09/29/25 09:50 Completed CBC Stat Lab 09/29/25 09:50 Completed CK [Creatine Kinase] Stat Lab 09/29/25 09:50 Completed CMP [Comprehensive Metabolic Panel] Stat Lab 09/29/25 09:50 Completed CRP [C-Reactive Protein] Stat Lab 09/29/25 09:50 Completed Drug Screen,Urine Stat Lab 09/29/25 11:49 Completed ESR [Sed Rate (ESR)] Stat Lab 09/29/25 09:50 Completed Hemoglobin A1C [Glycohemoglobin w (eAG)] Stat Lab 09/29/25 09:50 Completed Lactate (Lactic Acid) Stat Lab 09/29/25 09:50 Completed Lactic Acid, 3 HR Stat Lab 09/29/25 13:18 Completed Lipase Stat Lab 09/29/25 09:50 Completed Magnesium Stat Lab 09/29/25 09:50 Completed Procalcitonin Stat Lab 09/29/25 09:50 Completed TSH [Thyroid Stimulating Hormone] Stat Lab 09/29/25 09:50 Completed UA, C/S IF [Urinalysis, C/S if Indicated] Stat Lab 09/29/25 11:49 Completed Insulin Regular Med 09/29/25 11:39 Discontinued 8 unit IV X1 ONE Ketorolac Inj [Toradol Inj] Med 09/29/25 09:09 Discontinued 30 mg IVP X1 ONE Morphine* Inj Med 09/29/25 09:09 Discontinued 4 mg IV X1 ONE Ondansetron Inj [Zofran Inj] Med 09/29/25 09:09 Discontinued 4 mg IVP X1 ONE Ringers Lactated 1000 ml [Lactated Ringers] 1,000 ml Med 09/29/25 09:10 Discontinued IV 1,000 mls/hr Vital Signs Vital signs: Vital Signs Temperature 97.9 F 09/29/25 09:02 Pulse Rate 108 H 09/29/25 09:02 Respiratory Rate 20 09/29/25 09:02 Blood Pressure 128/73 09/29/25 09:02 Pulse Oximetry (%) 98 09/29/25 09:02 Oxygen Delivery Method Room Air 09/29/25 09:02 Abdominal Pain MDM MDM Narrative MDM Narrative:: This section includes all my notes and documentations, including HPI, PE, and ED course. Corky Coello MD HPI: 50 y/o male with Hx of Type II DM, HTN, and HLD presents with vomiting and abdominal pain for a week with no bowel movement. No other complaints. ROS: All negative except as documented in HPI. Physical Exam: General: Alert and oriented. Appears uncomfortable. Eyes: Conjunctivae and lids clear. ENT: No nasal congestion. Neck: Supple. Heart: RRR. Lungs: No respiratory distress. Good air movement. No rhonchi, wheezing, rales. Abdomen: Soft with diffuse tenderness, difficult to localize. Normal bowel sounds. No distension. No rebound or guarding. Back: No CVA tenderness. Skin: Warm and dry. Neuro: Alert and oriented X 3. I reviewed all diagnostic test results: My review of the abdominal CT report is: NAD. My review of the abdominal US report is: NAD. Blood tests and urine tests unremarkable except Glu 329. At this point, diagnoses include: Constipation Hyperglycemia Treatment here included: IVF Toradol 30 mg IV Morphine 4 mg IV Zofran 4 mg IV Regular insulin 8 units IV Significant improvement noted, including several bowel movements. Recommended outpatient care. Based on my best medical judgment, made decision no further evaluation or treatment indicated at this time. Patient understands and agrees to the discharge instructions customized and printed, see below. Discharge instructions from Dr. Coello printed for you: -- After extensive evaluation, there is no emergency.? Such as appendicitis needing urgent surgery. -- You have severe constipation. As your intestines contract to move the feces along, this can cause severe pain. -- Take Senokot S (not plain Senokot, OTC so prescription not needed), four pills, at bedtime as needed.? May take a few days but this can help clear out your bowels. -- To help current constipation and prevent future constipation, increase oral fluid because dehydration cause severe constipation.? Maintain clear urine.? If dark or yellow, increase oral fluid. -- And every day, increase fresh fruits and fresh vegetables and physical exercise. -- And avoid narcotics which cause severe constipation. -- See a private doctor on 10/01/2025 for recheck. Ask to review all test results and official radiology reports, to make sure you receive all necessary follow-ups and monitoring. Ask for help with good management of your diabetes, labs today show poorly controlled diabetes. To make sure there is no serious underlying abdominal condition, ask to help you get more care not available here in the ER.? Such as EGD or scoping of your stomach, colonoscopy or scoping the colon, and a referral to see a mechanical shovel operator. -- Seek immediate medical care with worsening or with any concerns. Corky Coello MD Patient data External records reviewed:: [facility] previous records (Reviewed prior ED records from 08/13/25. Patient was seen for Abdominal pain.) Clinical information provided by:: patient Social determinants that could affect healthcare access:: none Patient has the following chronic illnesses:: Hypercholesterolemia, Hypertension, Diabetes Mellitus Type 2 How is presenting disease/condition affected by chronic disease/condition?: exacerbated by Evaluation data The following diagnostics were reviewed and interpreted by me:: lab results and radiology exam(s) Lab and/or radiology exams considered but not ordered:: None Interpretation Summary: I reviewed all diagnostic test results: My review of the abdominal CT report is: NAD. My review of the abdominal US report is: NAD. Blood tests and urine tests unremarkable except Glu 329. Medications / Prescriptions Medications or Prescriptions considered but not ordered:: None Medication administrations:: Medication Administration History Discontinued Medications Lactated Ringer's (Lactated Ringers) 1,000 mls @ 1,000 mls/hr IV .Q1H ONE Stop: 09/29/25 10:09 Last Infusion: 09/29/25 10:45 Dose: Infused Documented By: Admin: 09/29/25 09:44 Dose: 1,000 mls/hr Documented By: YADIRA Insulin Human Regular (Insulin Hum Regular 1 Unit/0.01 Ml (Per Unit)) 8 unit IV X1 ONE Stop: 09/29/25 11:40 Last Admin: 09/29/25 11:58 Dose: 8 unit Documented By: YADIRA Co-signed By: BHASKAR Ketorolac Tromethamine (Ketorolac Inj 30 Mg/Ml Vial) 30 mg IVP X1 ONE Stop: 09/29/25 09:10 Last Admin: 09/29/25 09:45 Dose: 30 mg Documented By: YADIRA Morphine Sulfate (Morphine Sulf Inj 4 Mg/Ml Vial) 4 mg IV X1 ONE Stop: 09/29/25 09:10 Last Admin: 09/29/25 09:45 Dose: 4 mg Documented By: YADIRA Ondansetron HCl (Ondansetron Inj 2 Mg/Ml Inj 2 Ml) 4 mg IVP X1 ONE; Protocol Stop: 09/29/25 09:10 Last Admin: 09/29/25 09:44 Dose: 4 mg Documented By: YADIRA IVF Toradol 30 mg IV Morphine 4 mg IV Zofran 4 mg IV Regular insulin 8 units IV Consultations Consultation(s) initiated? (list below): No Diagnosis Differential diagnosis abdominal pain: acute appendicitis, calculus of kidney, constipation, diverticulitis, gastroenteritis, pancreatitis and small bowel ob struction Most likely diagnosis given after review of the tests above:: Constipation Hyperglycemia Admission Indicated Admission indicated?: not indicated Explain why admission is indicated or not indicated:: With significant improvement and no condition needing emergent intervention, there was no indication for admission. Admission Request Was there a request for admission?: No Disposition Plan Disposition Plan: Discharge Discharge Attestation Discharge Attestation: The patient and all family members were given an opportunity to ask questions and understood the discharge instructions. Discharge instructions specifically effects, indications for sooner follow up or return to the emergency department, and the expected course of current diagnosis. Patient condition: Stable Discharge Plan Plan Patient Disposition: HOME (Self Care) Prescriptions/Referrals [facility]Senokot-S[facility] 8.6-50 mg tablet 4 tab-cap PO QDAY PRN (Reason: constipation) Qty: 20 0RF ondansetron 4 mg tablet,disintegrating 4 mg PO TID PRN (Reason: nausea and vomiting) 30 Days Qty: 10 0RF No Action Levemir U-100 Insulin 100 U/ML solution 25 unit Sub-Q BID Qty: 0 pantoprazole [Protonix] 20 mg tablet,delayed release (DR/EC) 20 mg PO QDAY Qty: 20 0RF sucralfate [Carafate] 1 gram tablet 1 g PO BID Qty: 30 1RF peg 3350-electrolytes [GaviLyte-G] 236-22.74-6.74 -5.86 gram recon soln 240 ml PO Q10M Qty: 4000 0RF Rx Instructions: until fecal effluent is clear promethazine 25 mg tablet 1 tab PO DAILY Patient Comments: TAKE 1 TABLET BY MOUTH EVERY 4 TO 6 HOURS NEEDED FOR NAUSEA OR VOMITING lisinopril 2.5 mg tablet 1 tab PO DAILY Patient Comments: TAKE 1 TABLET BY MOUTH DAILY dicyclomine 20 mg tablet 20 mg PO BID PRN (Reason: pain) Qty: 20 0RF metoclopramide HCl [Reglan] 10 mg tablet 10 mg PO Q6H PRN (Reason: nausea and vomiting) Qty: 30 0RF polyethylene glycol 3350 [Miralax] 17 gram/dose powder 4 g PO QDAY PRN (Reason: constipation) Qty: 119 0RF [facility]Primary Care Provider[facility] - In 1 week Problem List Clinical Impression: Constipation, Hyperglycemia Patient/Caregiver Discharge Instructions Discharge Activity: activity as tolerated Education Materials: ED Constipation (Adult), ED Diabetes with High Blood Sugar Additional Instructions: Discharge instructions from Dr. Coello printed for you: -- After extensive evaluation, there is no emergency.? Such as appendicitis needing urgent surgery. -- You have severe constipation. As your intestines contract to move the feces along, this can cause severe pain. -- Take Senokot S (not plain Senokot, OTC so prescription not needed), four pills, at bedtime as needed.? May take a few days but this can help clear out your bowels. -- To help current constipation and prevent future constipation, increase oral fluid because dehydration cause severe constipation.? Maintain clear urine.? If dark or yellow, increase oral fluid. -- And every day, increase fresh fruits and fresh vegetables and physical exercise. -- And avoid narcotics which cause severe constipation. -- See a private doctor on 10/01/2025 for recheck. Ask to review all test results and official radiology reports, to make sure you receive all necessary follow-ups and monitoring. Ask for help with good management of your diabetes, labs today show poorly controlled diabetes. To make sure there is no serious underlying abdominal condition, ask to help you get more care not available here in the ER.? Such as EGD or scoping of your stomach, colonoscopy or scoping the colon, and a referral to see a mechanical shovel operator. -- Seek immediate medical care with worsening or with any concerns. Print Language: Chinese Stand Alone Forms: [employer] Award Info., Patient Portal Info Letter
--- NOTE | 2025-09-29 09:10 | XR_ITS ---
Examination: CT abdomen and pelvis without contrast. Coronal 3-D reconstructions. Sagittal 2-D reconstructions. Date and time of exam: September 29, 2025, 0927 hours INDICATIONS: Constipation 5 days CTDI: vol (mGy): 9.9 DLP: (mGycm): 616 Technique: Axial images of the abdomen have been obtained, 3 mm slice thickness Intravenous contrast material has not been administered. Low dose protocols were performed. One or more of the following dose reduction techniques were used; automated exposure control, adjustment of the mA and/or KV according to patient size, use of iterative reconstruction technique. Findings: 10 mm splenic cyst No focal liver lesions No gallstones No pancreatic or adrenal mass No renal calculi or hydronephrosis No ureteral calculi Aorta normal size Normal appendix No bowel obstruction Moderate stool throughout the colon Normal seminal vesicles No prostatomegaly Urinary bladder intact IMPRESSION: No focal liver lesions. No renal or ureteral calculi, no hydronephrosis Normal appendix Moderate stool throughout the colon, no obstruction
--- NOTE | 2025-09-29 09:11 | XR_ITS ---
Examination: Abdomen sonogram, Limited Date and time of exam: September 29, 2025, 0954 hours INDICATIONS: Vomiting abdominal pain today Technique: Real-time simpson scale transabdominal sonographic images of the upper abdomen obtained. Findings: Normal gallbladder Normal common bile duct 0.3 cm Pancreatic head 3.3 cm Liver 16.5 cm fatty infiltration Normal hepatopetal portal venous flow Patent IVC IMPRESSION: Normal gallbladder Normal common bile duct
[2025-09-29] MEDS: RINGERS LACTATED 1000 ML 1,000 ML IV (09:44)
[2025-09-29] MEDS: ONDANSETRON INJ 2 MG/ML INJ 2 ML 4 MG IVP (09:44)
[2025-09-29] MEDS: MORPHINE SULF INJ 4 MG/ML VIAL IV (09:45)
[2025-09-29] MEDS: KETOROLAC INJ 30 MG/ML VIAL IVP (09:45)
[2025-09-29 10:14] LABS: Lactate (Lactic Acid) 2.1 mMol/L (0.4-2.0)
[2025-09-29 10:19] LABS: Base Excess 3 (-3-3); HCO3 28 mEq/L (20-26); Inspired Oxygen, FIO2 21 %; O2 Saturation 95 % (91-98); PCO2 43 mmHg (32.0-48.0); PO2 69 mmHg (83-108); pH, Arterial 7.42 (7.35-7.45)
[2025-09-29 10:33] LABS: Beta Hydroxybutyrate 0.4 mmol/L (<0.6)
[2025-09-29 10:46] LABS: Basophils # (Auto) 0.0 Thou/mm3 (0.0-0.2); Basophils % (Auto) 1 % (0-2.5); Eosinophils # (Auto) 0.0 Thou/mm3 (0.0-0.5); Eosinophils % (Auto) 0 % (0-10); Hematocrit 46.9 % (41.0-53.0); Hemoglobin 16.0 g/dL (13.5-16.0); Immature Granulocytes Auto 0.01 Thou/mm3 (0.00-0.00); Lymphocytes # (Auto) 0.9 Thou/mm3 (1.0-4.8); Lymphocytes % (Auto) 14 % (10-50); Mean Corpuscular HGB Conc 34.1 g/dl (31.0-37.0); Mean Corpuscular Hemoglobin 28.3 pg (25.0-35.0); Mean Corpuscular Volume 83 fL (80-100); Monocytes # (Auto) 0.3 Thou/mm3 (0.0-0.8); Monocytes % (Auto) 4 % (0-12); Neutrophils # (Auto) 5.3 Thou/mm3 (1.8-7.7); Neutrophils % (Auto) 81 % (37-80); Nucleated Red Blood Cell # 0.00 Thou/mm3 (0.00-0.00); Nucleated Red Blood Cell % 0 /100 WBC (0); Platelet Count 313 Thou/mm3 (140-440); RDW Standard Deviation 38.0 fL (35.1-43.9); Red Blood Count 5.65 Miln/mm3 (4.50-5.90); White Blood Count 6.6 Thou/mm3 (3.8-10.6)
[2025-09-29 10:57] LABS: B-Type Natriuretic Peptide 208 pg/mL (0-100)
[2025-09-29 10:59] LABS: Sed Rate (ESR) 25 mm/hr (0-15)
[2025-09-29 11:06] LABS: Allen Test Performed/OK; Puncture Site Right Radial
[2025-09-29 11:14] LABS: Glucose Estimated Average 235 mg/dL (80-131); Hemoglobin A1C 9.8 % Hgb (4.8-6.0)
[2025-09-29 11:34] LABS: Alanine Aminotransferase 16 U/L (10-49); Albumin, Serum 5.0 gm/dL (3.5-5.0); Albumin/Globulin Ratio 1.7 (1.2-2.2); Alcohol, Blood Medical < 3.0 mg/dL (0-10.0); Alkaline Phosphatase 72 U/L (46-116); Amylase 37 U/L (30-118); Anion Gap 11 (7-16); Aspartate Amino Transferase 19 U/L (0-34); BUN/Creatinine Ratio 15 Ratio (12-20); Bilirubin,Direct 0.2 mg/dL (0.0-0.3); Bilirubin,Total 0.5 mg/dL (0.3-1.2); Blood Urea Nitrogen 20 mg/dL (9-23); C-Reactive Protein < 0.5 mg/dL (0.0-0.9); Calcium 9.5 mg/dL (8.3-10.6); Calcium (Corrected) 9.5 mg/dL (8.5-10.1); Carbon Dioxide 28.0 mMol/L (20.0-31.0); Chloride 99 mMol/L (98-107); Creatine Kinase 149 U/L (34-171); Creatinine (Component) 1.3 mg/dL (0.6-1.3); Estimated Creatinine Clearance 81.9 mL/min (>60); Globulin 3.0 gm/dL (2.3-3.5); Glucose 329 mg/dL (74-106); Lipase 28 U/L (12-53); Magnesium 2.4 mg/dL (1.6-2.6); Osmolality,Calculated 291 (275-295); Potassium 4.0 mMol/L (3.4-5.1); Procalcitonin 0.04 ng/ml (0.0-0.49); Sodium 138 mMol/L (136-145); Thyroid Stimulating Hormone 0.88 uIU/mL (0.55-4.78); Total Protein 8.0 gm/dL (5.7-8.2); eGFR > 60 See Note
[2025-09-29 11:56] LABS: Collection Type, Urine Clean Catch
[2025-09-29] MEDS: INSULIN HUM REGULAR 1 UNIT/0.01 ML (PER UNIT) 8 UNIT IV (11:58)
[2025-09-29 12:38] LABS: Bilirubin,Urine Negative (Negative); Blood,Urine Negative (Negative); Budding Yeast,Urine Present; Clarity,Urine Clear (Clear/Hazy); Color,Urine Lt-Yellow (Lt Yel-Yel); Culture Indicated,Urine Not Indicated; Glucose, Urine 4+ (Negative); Ketones,Urine 2+ (Negative); Leukocyte Esterase,Urine Negative (Negative); Nitrite,Urine Negative (Negative); PH,Urine 6.0 (5.0-7.0); Protein,Urine Negative (Neg - Trace); RBC,Urine 2 /hpf (0-3); Specific Gravity,Urine 1.046 (1.001-1.035); Squamous Epithelial Cell,Urine < 1 /hpf (0-5); Urobilinogen,Urine Negative mg/dL (0.0-1.0); WBC,Urine < 1 /hpf (0-5)
[2025-09-29 12:43] LABS: Amphetamine/Methamp Scrn,U Negative (Negative); Barbiturate Screen,Urine Negative (Negative); Benzodiazepines Screen,Urine Negative (Negative); Benzoylecgonine Screen, Ur Negative (Negative); Fentanyl Screen,Urine Negative (Negative); Opiate Screen,Urine Positive (Negative); THC Screen,Urine Negative (Negative)
[2025-09-29 13:09] LABS: Reflex Lactate? Y
[2025-09-29 13:27] LABS: Lactic Acid, 3 HR 2.0 mMol/L (0.4-2.0)
[2025-09-29 13:45] VITALS: BP 126/62; PULSE 99; RESP 18; TEMP 36.6; O2SAT 99
== END 2025-09-29 13:45 | disposition home or self-care (01) ==
PROVIDERS: Emergency Provider Emergency Medicine; PCP Nurse Practitioner Family
DX: K59.00 Constipation, unspecified (principal); E11.65 Type 2 diabetes mellitus with hyperglycemia; Z79.4 Long term (current) use of insulin
CPT/HCPCS: 36415; 36600; 74176; 76705; 80053; 80307; 80320; 81001; 82010; 82150; 82248; 82550; 82803; 83036; 83605; 83690; 83735; 83880; 84145; 84443; 85025; 85652; 86140; 96361; 96374; 96375; 99284; J1815; J1885; J2270; J2405; J7120; G0480

== ENCOUNTER 2025-09-30 16:40 | Emergency (ER) | payer BC, SELFPAY ==
[2025-09-30 16:57] VITALS: BP 144/98; PULSE 117; RESP 26; TEMP 36.8; O2SAT 96
--- NOTE | 2025-09-30 17:25 | PD.EDRME ---
Rapid Medical Screening Exam E Arrival date/time: 09/30/25 16:40 Chief Complaint: Abdominal Pain Vital signs: Vital Signs Temperature 98.3 F 09/30/25 16:57 Pulse Rate 117 H 09/30/25 16:57 Respiratory Rate 26 H 09/30/25 16:57 Blood Pressure 144/98 H 09/30/25 16:57 Pulse Oximetry (%) 96 09/30/25 16:57 Oxygen Delivery Method Room Air 09/30/25 16:57 RME Narrative: 50-year-old male here with continued constipation and vomiting and abdominal pain. Was seen by me here yesterday. Abdominal ultrasound and CT scan were unremarkable. Blood/urine tests were unremarkable except hyperglycemia without DKA. Patient demands more workup and care. Refuses to leave without answers. Exam: Appears uncomfortable with tachycardia. Clinical Impression: Continued constipation and vomiting and abdominal pain.
[2025-09-30 17:53] LABS: Base Excess, Venous 5 (-3-3); O2 Saturation, Venous 89 % (96-97); PCO2, Venous 35 mmHg (36-56); PO2, Venous 48 mmHg (15-58); pH, Venous 7.51 (7.33-7.66)
[2025-09-30 17:59] LABS: Basophils # (Auto) 0.0 Thou/mm3 (0.0-0.2); Basophils % (Auto) 1 % (0-2.5); Beta Hydroxybutyrate 0.4 mmol/L (<0.6); Eosinophils # (Auto) 0.2 Thou/mm3 (0.0-0.5); Eosinophils % (Auto) 3 % (0-10); Hematocrit 45.7 % (41.0-53.0); Hemoglobin 16.1 g/dL (13.5-16.0); Immature Granulocytes Auto 0.01 Thou/mm3 (0.00-0.00); Lymphocytes # (Auto) 1.0 Thou/mm3 (1.0-4.8); Lymphocytes % (Auto) 17 % (10-50); Mean Corpuscular HGB Conc 35.2 g/dl (31.0-37.0); Mean Corpuscular Hemoglobin 29.0 pg (25.0-35.0); Mean Corpuscular Volume 82 fL (80-100); Monocytes # (Auto) 0.3 Thou/mm3 (0.0-0.8); Monocytes % (Auto) 5 % (0-12); Neutrophils # (Auto) 4.5 Thou/mm3 (1.8-7.7); Neutrophils % (Auto) 74 % (37-80); Nucleated Red Blood Cell # 0.00 Thou/mm3 (0.00-0.00); Nucleated Red Blood Cell % 0 /100 WBC (0); Platelet Count 329 Thou/mm3 (140-440); RDW Standard Deviation 37.3 fL (35.1-43.9); Red Blood Count 5.56 Miln/mm3 (4.50-5.90); White Blood Count 6.1 Thou/mm3 (3.8-10.6)
[2025-09-30 18:13] VITALS: BP 150/115; BP 154/112; PULSE 111; RESP 18; TEMP 36.9; O2SAT 98
[2025-09-30] MEDS: SODIUM CHLORIDE 0.9% 1000 ML 1,000 ML 999 ML IV (18:25)
[2025-09-30 18:27] LABS: Amphetamine/Methamp Scrn,U Negative (Negative); Barbiturate Screen,Urine Negative (Negative); Benzodiazepines Screen,Urine Negative (Negative); Benzoylecgonine Screen, Ur Negative (Negative); Fentanyl Screen,Urine Negative (Negative); Opiate Screen,Urine Positive (Negative); THC Screen,Urine Negative (Negative)
[2025-09-30] MEDS: KETOROLAC INJ 30 MG/ML VIAL IVP (18:27)
[2025-09-30] MEDS: ONDANSETRON INJ 2 MG/ML INJ 2 ML 4 MG IVP (18:27)
[2025-09-30] MEDS: LACTULOSE SYRUP 20 GM/30 ML UDC PO (18:28)
--- NOTE | 2025-09-30 18:35 | PD.EDABDPN ---
ED Abdominal Pain RME/HPI General Chief Complaint: Abdominal Pain Stated complaint: L) ABD PAIN, N/V, CONSTIPATED Time seen by provider: 09/30/25 18:36 Arrival date/time: 09/30/25 16:40 RME / HPI RME / HPI narrative: 50-year-old male here with continued constipation and vomiting and abdominal pain. Was seen by me here yesterday. Abdominal ultrasound and CT scan were unremarkable. Blood/urine tests were unremarkable except hyperglycemia without DKA. Patient demands more workup and care. Refuses to leave without answers. Dr. Robertson?s Main ED Evaluation: 50yo male presents to the ED for a chief complaint of left-sided abdominal pain. Patient was seen here in the ED yesterday for the same complaint and had a full work-up performed. Patient endorses having a small bowel movement yesterday for the first time in 7 days. Patient continues to having left-sided abdominal pain, nausea, and vomiting, so he came back in for further evaluation. Patient denies any fever, chills, or any other associated symptoms. NKA. Related Data Home Medications ?Medication ?Instructions ?Recorded ?Confirmed insulin detemir U-100 100 unit/mL 25 unit subcut BID #0 vials 10/23/16 07/01/22 subcutaneous solution (Levemir U-100 Insulin) lisinopril 2.5 mg tablet 1 tab PO DAILY 07/01/22 07/01/22 promethazine 25 mg tablet 1 tab PO DAILY 07/01/22 07/01/22 Previous Rx's ?Medication ?Instructions ?Recorded pantoprazole 20 mg tablet,delayed 20 mg PO QDAY #20 tabs 05/04/22 release (Protonix) sucralfate 1 gram tablet (Carafate) 1 g PO BID #30 tabs 05/04/22 dicyclomine 20 mg tablet 20 mg PO BID PRN pain #20 tabs 02/12/23 metoclopramide HCl 10 mg tablet 10 mg PO Q6H PRN nausea and 08/11/25 (Reglan) vomiting #30 tabs polyethylene glycol 3350 17 4 g PO QDAY PRN constipation #119 08/13/25 gram/dose oral powder (Miralax) grams ondansetron 4 mg disintegrating 4 mg PO TID PRN nausea and 12/20/25 tablet vomiting 30 days #10 tabs sennosides 8.6 mg-docusate sodium 4 tab-cap (4 x 8.6-50 mg) PO QDAY 09/29/25 50 mg tablet (Senokot-S) PRN constipation #20 tabs peg 3350-electrolytes 236 240 ml PO Q10M #4,000 mL 09/30/25 gram-22.74 gram-6.74 gram-5.86 gram solution (GaviLyte-G) Allergies Allergy/AdvReac Type Severity Reaction Status Date / Time No Known Allergies Allergy Verified 09/30/25 16:42 Review of Systems Review of Systems Systems Reviewed: All systems reviewed, normal except as documented Past Medical History Past Medical History NEUROLOGIC: Negative Neurological Disorders, Seizures or Migraine CARDIAC: Positive Hypercholesterolemia and Hypertension; Negative Cardiac Disorders or Congestive Heart Failure RESPIRATORY: Negative Chronic Obstructive Pulmonary Disease (COPD), Asthma or Sleep Apnea GASTROINTESTINAL: Negative Gastrointestinal Disorders GENITOURINARY: Negative Renal Disease MUSCULOSKELETAL: Positive Musculoskeletal Disorders ENDOCRINE: Positive Endocrine Disorders and Diabetes Mellitus Type 2; Negative Diabetes Mellitus Type 1 HEMATOLOGIC: Negative Sickle Cell Disease OTHER HISTORY: Negative Blood Transfusions, Anesthesia Reactions or Cancer Surgical History SURGICAL: Negative Cardiac Surgery, Endocrine Surgery, Ear Surgery, Abdominal Surgery, Nephrectomy, Joint Replacement or Neurologic Surgery Social History SMOKING STATUS: Current every day smoker ED Exam Narrative Physical exam: Generally patient is alert in mild distress secondary to abdominal pain, heart regular rate and rhythm, lungs clear to auscultation equal laterally, abdomen soft bowel sounds present nondistended diffusely tender without rebound, skin is warm pale and dry, neurologic exam Eriak Coma Scale is 15 without focal motor deficit Course Quality Measures none Orders Category Date Time Status CT Screening NOW Care 09/30/25 17:31 Active Enema Administration NOW Care 09/30/25 18:49 Active Saline [Insert IV] NOW Care 09/30/25 17:28 Active Alcohol, Blood Medical Stat Lab 09/30/25 17:45 Completed Amylase Stat Lab 09/30/25 17:45 Completed Beta Hydroxybutyrate Stat Lab 09/30/25 17:45 Completed Bilirubin,Direct Stat Lab 09/30/25 17:45 Completed CBC Stat Lab 09/30/25 17:45 Completed CK [Creatine Kinase] Stat Lab 09/30/25 17:45 Completed CMP [Comprehensive Metabolic Panel] Stat Lab 09/30/25 17:45 Completed Drug Screen,Urine Stat Lab 09/30/25 17:55 Completed Lipase Stat Lab 09/30/25 17:45 Completed Magnesium Stat Lab 09/30/25 17:45 Completed VBG [Venous Blood Gas] Stat Lab 09/30/25 17:45 Completed Ketorolac Inj [Toradol Inj] Med 09/30/25 17:29 Discontinued 30 mg IVP X1 ONE Lactulose Syrup [Enulose Syrup] Med 09/30/25 17:31 Discontinued 20 gm PO X1 ONE Ondansetron Inj [Zofran Inj] Med 09/30/25 17:29 Discontinued 4 mg IVP X1 ONE Sodium Chloride 0.9% 1000 ml [Ns] 1,000 ml Med 09/30/25 17:29 Discontinued IV 999 mls/hr Vital Signs Vital signs: Vital Signs Temperature 98.3 F 09/30/25 16:57 Pulse Rate 117 H 09/30/25 16:57 Respiratory Rate 26 H 09/30/25 16:57 Blood Pressure 144/98 H 09/30/25 16:57 Pulse Oximetry (%) 96 09/30/25 16:57 Oxygen Delivery Method Room Air 09/30/25 16:57 Abdominal Pain MDM MDM Narrative MDM Narrative:: Scribe Attestation: 09/30/25 Dot Nunez am scribing for and in the presence of Dr. Robertson. I interpreted all labs. There is no acute abnormality. I reviewed the workup done yesterday including a normal gallbladder ultrasound and a CT scan done of the abdomen pelvis with IV contrast showed moderate stool within the colon but no obstruction and no acute disease process. Patient was already RME'd by previous physician who wrote orders. Patient did receive lactulose p.o. He will receive an enema here in the emergency room. He will be discharged on GoLytely to take as prescribed. He can follow-up with his doctor for further treatment and evaluation. Patient data External records reviewed:: [facility] previous records (Per chart review, patient was seen here yesterday for constipation.) Clinical information provided by:: patient Social determinants that could affect healthcare access:: none Patient has the following chronic illnesses:: DMII How is presenting disease/condition affected by chronic disease/condition?: uneffected by Evaluation data The following diagnostics were reviewed and interpreted by me:: lab results Lab and/or radiology exams considered but not ordered:: none Interpretation Summary: See MDM Medications / Prescriptions Medications or Prescriptions considered but not ordered:: none Medication administrations:: Medication Administration History Discontinued Medications Sodium Chloride (Ns) 1,000 mls @ 999 mls/hr IV .Q1H1M ONE Stop: 09/30/25 18:29 Last Admin: 09/30/25 18:25 Dose: 999 mls/hr Documented By: TM Ketorolac Tromethamine (Ketorolac Inj 30 Mg/Ml Vial) 30 mg IVP X1 ONE Stop: 09/30/25 17:30 Last Admin: 09/30/25 18:27 Dose: 30 mg Documented By: TM Lactulose (Lactulose Syrup 20 Gm/30 Ml Udc) 20 gm PO X1 ONE; Protocol Stop: 09/30/25 17:32 Last Admin: 09/30/25 18:28 Dose: 20 gm Documented By: TM Ondansetron HCl (Ondansetron Inj 2 Mg/Ml Inj 2 Ml) 4 mg IVP X1 ONE; Protocol Stop: 09/30/25 17:30 Last Admin: 09/30/25 18:27 Dose: 4 mg Documented By: TM see above Consultations Consultation(s) initiated? (list below): No Diagnosis Differential diagnosis abdominal pain: other (See MDM) Most likely diagnosis given after review of the tests above:: see clinical impression below Admission Indicated Admission indicated?: not indicated Admission Request Was there a request for admission?: No Disposition Plan Disposition Plan: Discharge Discharge Attestation Discharge Attestation: The patient and all family members were given an opportunity to ask questions and understood the discharge instructions. Discharge instructions specifically effects, indications for sooner follow up or return to the emergency department, and the expected course of current diagnosis. Patient condition: Stable Discharge Plan Plan Patient Disposition: HOME (Self Care) Prescriptions/Referrals Prescriptions/Med Rec: New peg 3350-electrolytes [GaviLyte-G] 236-22.74-6.74 -5.86 gram recon soln 240 ml PO Q10M Qty: 4000 0RF Rx Instructions: until fecal effluent is clear No Action Levemir U-100 Insulin 100 U/ML solution 25 unit Sub-Q BID Qty: 0 pantoprazole [Protonix] 20 mg tablet,delayed release (DR/EC) 20 mg PO QDAY Qty: 20 0RF sucralfate [Carafate] 1 gram tablet 1 g PO BID Qty: 30 1RF sennosides-docusate sodium [Senokot-S] 8.6-50 mg tablet 4 tab-cap PO QDAY PRN (Reason: constipation) Qty: 20 0RF ondansetron 4 mg tablet,disintegrating 4 mg PO TID PRN (Reason: nausea and vomiting) 30 Days Qty: 10 0RF promethazine 25 mg tablet 1 tab PO DAILY Patient Comments: TAKE 1 TABLET BY MOUTH EVERY 4 TO 6 HOURS NEEDED FOR NAUSEA OR VOMITING lisinopril 2.5 mg tablet 1 tab PO DAILY Patient Comments: TAKE 1 TABLET BY MOUTH DAILY dicyclomine 20 mg tablet 20 mg PO BID PRN (Reason: pain) Qty: 20 0RF metoclopramide HCl [Reglan] 10 mg tablet 10 mg PO Q6H PRN (Reason: nausea and vomiting) Qty: 30 0RF polyethylene glycol 3350 [Miralax] 17 gram/dose powder 4 g PO QDAY PRN (Reason: constipation) Qty: 119 0RF Referrals: Mai)Giana PA-C [Primary Care Provider] - In 1 week Problem List Clinical Impression: Constipation Patient/Caregiver Discharge Instructions Education Materials: Treating Constipation, ED Constipation (Adult) Additional Instructions: GoLytely as prescribed. Follow-up with your doctor for further treatment and evaluation. Print Language: Hebrew Stand Alone Forms: Alysha Award Info., Patient Portal Info Letter
[2025-09-30 18:48] LABS: Anion Gap 12 (7-16); BUN/Creatinine Ratio 13 Ratio (12-20); Blood Urea Nitrogen 16 mg/dL (9-23); Calcium 9.4 mg/dL (8.3-10.6); Carbon Dioxide 27.8 mMol/L (20.0-31.0); Chloride 97 mMol/L (98-107); Creatinine (Component) 1.2 mg/dL (0.6-1.3); Glucose 253 mg/dL (74-106); Osmolality,Calculated 284 (275-295); Potassium 4.0 mMol/L (3.4-5.1); Sodium 137 mMol/L (136-145); eGFR > 60 See Note
[2025-09-30 18:49] LABS: Alanine Aminotransferase 12 U/L (10-49); Aspartate Amino Transferase 20 U/L (0-34); Bilirubin,Direct 0.2 mg/dL (0.0-0.3); Bilirubin,Total 0.6 mg/dL (0.3-1.2); Creatine Kinase 97 U/L (34-171); Magnesium 2.6 mg/dL (1.6-2.6); Total Protein 7.8 gm/dL (5.7-8.2)
[2025-09-30 18:50] LABS: Albumin, Serum 4.5 gm/dL (3.5-5.0); Albumin/Globulin Ratio 1.4 (1.2-2.2); Calcium (Corrected) 9.4 mg/dL (8.5-10.1); Globulin 3.3 gm/dL (2.3-3.5)
[2025-09-30 18:52] LABS: Alcohol, Blood Medical < 0.3 mg/dL (0-10.0); Alkaline Phosphatase 69 U/L (46-116); Amylase 49 U/L (30-118); Lipase 29 U/L (12-53)
[2025-09-30 20:50] VITALS: BP 147/98; PULSE 102; RESP 16; O2SAT 99
== END 2025-09-30 20:52 | disposition home or self-care (01) ==
PROVIDERS: Emergency Medicine; Emergency Provider Emergency Medicine; PCP Nurse Practitioner Family
DX: K59.00 Constipation, unspecified (principal)
CPT/HCPCS: 36415; 80053; 80307; 80320; 82010; 82150; 82248; 82550; 82803; 83690; 83735; 85025; 96361; 96374; 96375; 99283; J1885; J2405; J7030; A9270; G0480